=== PATIENT | female | born 1950 | race Caucasian/White ===

== ENCOUNTER 2018-08-31 00:05 | Outpatient (CLI) | payer MEDICARE, OTHER, SELFPAY ==
--- NOTE | 2018-08-31 07:42 | DI.MAMMO_ITS ---
SYMPTOM/DIAGNOSIS: SCREENING, [facility], Z00.00 MAMMOGRAM: 08/31/18 Mammograms were interpreted according to the usual protocol including computer analysis with CAD system, tomosynthesis and C view imaging. The breasts are of moderate density with fairly symmetrical distribution of fibroglandular tissue. No dominant mass is identified in either breast apart from a previously described left breast upper outer quadrant nodule which is markedly decreased in size in comparison with examination of Jul 2017. No clumped microcalcification is identified in either breast. CONCLUSION: No specific evidence of malignancy at this time. Routine screening examinations are suggested at yearly intervals in this age group according to the ACS/ACR guidelines. Category 1, breast category B. SA ASSESSMENT OF FINDINGS: Negative. Category 1. Patient will receive a letter notifying them of these results. BI-RADS category B. There are scattered areas of fibroglandular density.
== END 2018-08-31 00:25 ==
PROVIDERS: PCP Family Medicine; Visit Provider Family Medicine
DX: Z12.31 Encounter for screening mammogram for malignant neoplasm of breast (principal)
CPT/HCPCS: 77063; 77067

== ENCOUNTER → 2018-09-21 07:57 | Outpatient (BNVA) | payer MEDICARE, OTHER, SELFPAY | PROVIDERS: PCP Family Medicine; Referring Provider Family Medicine; Visit Provider Student in an Organized Health Care Education/Training Program | DX: M17.12 Unilateral primary osteoarthritis, left knee (principal) | CPT/HCPCS: 99213 ==

== ENCOUNTER 2019-12-24 01:06 | Outpatient (CLI) | payer MEDICARE, SELFPAY ==
--- NOTE | 2019-12-24 13:15 | DI.MAMMO_ITS ---
EXAM: MAMMO SCREENING CLINICAL HISTORY: SCREENING,Z12.39,[facility],Z00.00 TECHNIQUE: Mammograms were interpreted according to the usual protocol including computer analysis w 60mo CAD system, tomosynthesis and C-view imaging. COMPARISON: 2012 through 2018 FINDINGS: The breasts are composed of heterogeneously dense fibroglandular densities, Breast Density category C . No suspicious masses or suspicious microcalcifications are seen. There is a stable area of nodularit y seen in the posterior right breast, found to represent a cyst on previous ultrasound. No skin thickening or abnormal axillary lymph nodes are seen. There has been no significant change from prior exams. IMPRESSION: BI-RADS Category 1: Negative mammogram. Yearly screening mammography is recommended. Breast density category C, heterogeneously dense tissue which decreases the sensitivity of the mammog pierre. The mammogram demonstrates the patient's breast tissue is dense. Dense breast tissue is very common a nd is not abnormal but dense breast tissue can make it harder to find cancer on a mammogram. Also, de nse breast tissue may increase breast cancer risk. This information about the result of the mammogram report was provided to the patient to raise their awareness. Use this report when you speak with the patient about their risks for breast cancer, which includes their family history. At that time, you may recommend additional screening tests (Ultrasound or MRI) as they might be useful based on their r isk. A negative radiographic report should not delay biopsy if a dominant or clinically suspicious mass is present. Up to ten percent of cancers are not identified on mammography. A negative report may reinforce clinical impression. Adenosis and dense breasts may obscure an underlying neoplasm. False positive reports average 6 to 10%.
== END 2019-12-24 01:26 ==
PROVIDERS: PCP Family Medicine; Visit Provider Family Medicine
DX: Z12.31 Encounter for screening mammogram for malignant neoplasm of breast (principal); N60.01 Solitary cyst of right breast
CPT/HCPCS: 77063; 77067

== ENCOUNTER 2020-03-18 13:08 | Outpatient (REF) | payer MEDICARE, OTHER, SELFPAY | END 2020-03-18 13:28 | LOC: NCHCN 13:08 | PROVIDERS: PCP Family Medicine; Visit Provider Nurse Practitioner Family | DX: N39.0 Urinary tract infection, site not specified (principal) | CPT/HCPCS: 87077; 87086; 87186 ==

== ENCOUNTER 2020-09-12 16:59 | Outpatient (REF) | payer MEDICARE, OTHER, SELFPAY ==
[2020-09-12 16:05] LABS: Bilirubin Negative (Negative); Blood Large (Negative); Clarity Cloudy (Clear); Glucose Negative (Negative); Ketones Negative (Negative); Leukocyte Esterase Moderate (Negative); Nitrite Negative (Negative); Urobilinogen 0.2 EU/dL (Up TO 0.2)
[2020-09-12 16:17] LABS: C & S Indicated? Yes; RBC >50 HPF (0-2); WBC >50 HPF (0-5)
== END 2020-09-12 17:00 | disposition home or self-care (01) ==
LOC: NCHCN 16:59
PROVIDERS: PCP Family Medicine; Visit Provider Family Medicine
DX: N39.0 Urinary tract infection, site not specified (principal)
CPT/HCPCS: 87077; 81003; 81015; 87086; 87186

== ENCOUNTER 2020-11-28 15:07 | Outpatient (REF) | payer MEDICARE, OTHER, SELFPAY | END 2020-11-28 15:08 | disposition home or self-care (01) | LOC: LBN 15:07 | PROVIDERS: PCP Family Medicine; Visit Provider Nurse Practitioner Family | DX: N39.0 Urinary tract infection, site not specified (principal) | CPT/HCPCS: 87086 ==

== ENCOUNTER 2021-01-25 10:17 | Outpatient (CLI) | payer MEDICARE, OTHER, SELFPAY ==
--- NOTE | 2021-01-25 09:15 | DI.RAD_ITS ---
Exam(s) XR KNEE LT 3V AP,LAT,VERENICE EXAM: XR KNEE LT 3V AP,LAT,VERENICE CLINICAL HISTORY: L knee pain. TECHNIQUE: 2D digital imaging was performed. COMPARISON: No exams were available for comparison FINDINGS: There is no evidence fracture nor obvious knee joint effusion. Main finding is advanced [id number] degenerative change in medial compartment also significant degenerative changes the patellofemoral c ompartment. Milder degenerative changes in the lateral compartment. Mild Verus deformity. IMPRESSION: Osteoarthritic degenerative changes. DATA REPOSITORY: RADIATION DOSE DELIVERED:
== END 2021-01-25 10:18 | disposition home or self-care (01) ==
LOC: DIORS 10:18
PROVIDERS: PCP Family Medicine; Referring Provider Family Medicine; Visit Provider Student in an Organized Health Care Education/Training Program
DX: M17.12 Unilateral primary osteoarthritis, left knee (principal); M25.562 Pain in left knee
CPT/HCPCS: 20610; 73562; J1040

== ENCOUNTER 2021-04-20 12:16 | Outpatient (REF) | payer MEDICARE, OTHER, SELFPAY ==
[2021-04-20 19:53] LABS: HCT 44.9 % (36.0-46.0); HGB 14.9 g/dL (11.2-15.7); MCH 31.5 pg (27.0-33.0); MCHC 33.2 % (32.0-36.0); MCV 94.9 fL (80-95); MPV 10.6 fL (8.0-11.0); Platelet Count 234 10^3/uL (130-400); RBC 4.73 10^6/uL (3.93-5.22); RDW-SD 45.6 fL; WBC 5.04 10^3/uL (4.4-10.8)
[2021-04-20 20:47] LABS: Vitamin D 25 Total 28.3 ng/mL (30-100)
[2021-04-20 20:50] LABS: ALT 31 U/L (14-59); AST 15 U/L (15-37); Albumin 4.3 g/dL (3.4-5.0); Alkaline Phosphatase 62 U/L (46-116); Anion Gap 9.1 mmol/L (3-11); BUN 13 mg/dL (7-18); Bilirubin, Total 0.6 mg/dL (0.2-1.0); CO2 28.9 mmol/L (21.0-32.0); CREATININE 0.9 mg/dL (0.55-1.02); Calculated LDL 136 mg/dL (<100); Chloride 106 mmol/L (98-107); Cholesterol 234 mg/dL (<200); Glucose 110 mg/dL (74-106); HDL Cholesterol 77 mg/dL (40-60); Potassium 4.3 mmol/L (3.5-5.1); Sodium 144 mmol/L (136-145); TSH (W/Ref FT4) 1.93 uIU/mL (0.36-3.74); Total Protein 7.1 g/dL (6.4-8.2); Triglyceride 109 mg/dL (<150); Vitamin B12 450 pg/mL (193-986)
== END 2021-04-20 12:17 | disposition home or self-care (01) ==
LOC: NCHCN 12:16
PROVIDERS: PCP Family Medicine; Referring Provider Family Medicine; Visit Provider Family Medicine
DX: C54.1 Malignant neoplasm of endometrium (principal); Z00.00 Encounter for general adult medical examination without abnormal findings
CPT/HCPCS: 80053; 80061; 82306; 85027; 82607; 84443

== ENCOUNTER → 2021-05-17 10:53 | Outpatient (BNVA) | payer MEDICARE, OTHER, SELFPAY | PROVIDERS: PCP Family Medicine; Referring Provider Family Medicine; Visit Provider Student in an Organized Health Care Education/Training Program | DX: M17.12 Unilateral primary osteoarthritis, left knee (principal); Z98.890 Other specified postprocedural states | CPT/HCPCS: 99213 ==

== ENCOUNTER 2021-07-02 00:14 | Outpatient (CLI) | payer MEDICARE, OTHER, SELFPAY ==
--- OUTSIDE RECORDS SUMMARY | 2021-07-02 00:16 | XMS_ITS ---
:1950 External Reference #:[id number] Author Care Team Providers Name Role Phone [facility] Primary Care Provider Unavailable Allergies None recorded. Medications Name Status Start Date Stop Date ? ? amoxicillin 250 mg capsule Active ? Not a vailable amoxicillin 875 mg-potassium clavulanate Active ? Not available 125 mg tablet celecoxib 200 mg capsule Active ? Not senait ilable Curcumin Active ? Not available esomeprazole magnesium 40 mg Active ? Not available capsule,delayed release Estrace 0.01% (0.1 mg/gram) vaginal cream Active ? Not available Fish Oil Active ? Not available fluconazole 150 mg tablet Active ? Not av ailable fluticasone propionate 50 mcg/actuation Active ? Not available nasal spray,suspension milk thistle Active ? Not available omeprazole 40 mg capsule,delayed release Active ? Not available sulfamethoxazole 800 mg-trimethoprim 160 Active ? Not available mg tablet Ventolin HFA 90 mcg/actuation aerosol Active ? Not available inhaler Vitamin D3 Active ? Not available vitamin E Active ? Not available Problems Name Status Onset Date Source ? Multiple Joint Pain Active 04/03/2019 ? Dietary Management Surveillance Active 04/03/2019 ? Cystocele and Rectocele Co-occurrent with Active 2018 ? Incomplete Uterovaginal Prolapse Hiatal Hernia Active 10/23/2019 ? Procedures Date Name Performed by ? 12/29/2014 Hysterectomy Information not avai lable 12/29/2014 Total Hysterectomy Information not avai lable 11/28/2014 Colonoscopy Information not avai lable 12/29/1978 Tubal Ligation Information not avai lable 10/05/2016 US, Abdomen Xray [facility] [address] [place], [place] [address] (Work Place) 06/04/2019 US, Duplex, Abdomen, Complete [facility] [address] (Work Place) 06/06/2019 CT, Abdomen + Pelvis, W/wo Contrast Xray [facility] [address] [place], [place] [address] (Work Place) Results Lab Results Date Name Specimen Result Interpretation Description Value Range Status Address ? 12/29/2016 HbA1C wholeblood ? Hgb a1C 5.7 % 4.0-5.7 [facility] (Hemoglobin % Diagn ostics: a1C), Blood [address] [place], [place] 12/29/2016 CBC W/ Auto wholeblood ? White Blood 5.3 4.0-1 1.0 [facility] Diff Cell Count 10^3/u 10^3/uL Diagn ostics: L [address] [place], [place] ? ? wholeblood ? Red Blood 4.53 4.00-5.4 [facility] Cell Count 10^6/u 0 Diagno stics: L 10^6/uL [address] [place], [place] ? ? wholeblood ? Hemoglobin 14.3 12.5-16. [facility] g/dL 0 g/dL Diagnostic s: [address] [place], [place] ? ? wholeblood ? Hematocrit 41.8 % 37.0-47. [facility] 0 % Diagnostic s: [address] [place], [place] ? ? wholeblood ? Mean Cell 92 fL 78-100 [facility] Volume fL Diagnostic s: [address] [place], [place] ? ? wholeblood ? Mean Cell 31.5 25.0-35. [facility] Hemoglobin pg 0 pg Diagno stics: [address] [place], [place] ? ? wholeblood ? Mean Cell 34.2 30.0-37. [facility] Hemoglobin g/dL 0 g/dL Diagno stics: Concentratio [address] [place], [place] ? ? wholeblood ? Red Cell 13.5 % 11.5-14. [facility] Distribution 5 % Diag nostics: Width [address] [place], [place] ? ? wholeblood ? Platelet 213 150-450 [facility] Count 10^3/u 10^3/uL Diagnosti cs: L [address] [place], [place] ? ? wholeblood ? Mean 8.9 fL 6.8-10.4 [facility] Platelet fL Diagnost ics: Volume [address] [place], [place] ? ? wholeblood ? Neutrophil 56.6 % 40.0-70. [facility] Percent 0 % Diagnosti cs: [address] [place], [place] ? ? wholeblood ? Absolute 3.0 1.5-6.6 [facility] Neutrophil 10^3/u 10^3/uL Diagn ostics: L [address] [place], [place] ? ? wholeblood ? Lymphocyte 31.6 % 18.0-48. [facility] Percent 0 % Diagnosti cs: [address] [place], [place] ? ? wholeblood ? Absolute 1.7 0.8-4.8 [facility] Lymphocyte 10^3/u 10^3/uL Diagn ostics: L [address] [place], [place] ? ? wholeblood ? Monocyte 8.3 % 2.0-11.0 [facility] Percent % Diagnosti cs: [address] [place], [place] ? ? wholeblood ? Absolute 0.40 0.00-0.9 [facility] Monocyte 10^3/u 0 Diagnost ics: L 10^3/uL [address] [place], [place] ? ? wholeblood ? Eosinophil 2.4 % 0.0-5.0 [facility] Percent % Diagnosti cs: [address] [place], [place] ? ? wholeblood ? Absolute 0.1 0.0-0.5 [facility] Eosinophil 10^3/u 10^3/uL Diagn ostics: L [address] [place], [place] ? ? wholeblood ? Basophil 1.1 % 0.0-2.0 [facility] Percent % Diagnosti cs: [address] [place], [place] ? ? wholeblood ? Basophil 0.10 0.00-0.3 [facility] Absolute 10^3/u 0 Diagnost ics: L 10^3/uL [address] [place], [place] 12/29/2016 Calcium, Serum High Calcium 1.32 1.11-1.3 [facility] Ionized, Ionized pH mmol/L 0 mmol/L D iagnostics: Blood 7.[address] [place], [place] ? ? Serum High Calcium, 1.35 1.11-1.3 [facility] Ionized mmol/L 0 mmol/L Diagnos tics: Serum [address] [place], [place] 12/29/2016 CMP, Serum serum High Glucose 111 <100 [facility] or Plasma mg/dL mg/dL Diagnos tics: [address] [place], [place] ? ? serum ? Bun 14 7-25 [facility] mg/dL mg/dL Diagnostic s: [address] [place], [place] ? ? serum ? Creatinine 0.74 0.70-1.3 [facility] mg/dL 0 mg/dL Diagnosti cs: [address] [place], [place] ? ? serum ? BUN / 18.9 6.0-21.0 [facility] Creatinine ratio ratio Diagno stics: Ratio [address] [place], [place] ? ? serum ? eGFR 97 >60 [facility] mL/min mL/min/1 Diagnos tics: English /1.73m .73m2 [address] [place], [place] ? ? serum ? eGFR 83 >60 [facility] Non- mL/min mL/min/1 [facility]: English /1.73m .73m2 [address] [place], [place] ? ? serum ? Sodium 141 135-145 [facility] mmol/L mmol/L Diagnostic s: [address] [place], [place] ? ? serum ? Potassium 4.1 3.5-5.1 [facility] mmol/L mmol/L Diagnostic s: [address] [place], [place] ? ? serum High Chloride 108 98-107 [facility] mmol/L mmol/L Diagnostic s: [address] [place], [place] ? ? serum ? Co2 24 21-31 [facility] mmol/L mmol/L Diagnostic s: [address] [place], [place] ? ? serum ? Anion Gap 9 5-15 [facility] mEq/L mEq/L Diagnostic s: [address] [place], [place] ? ? serum ? Calcium 9.8 8.6-10.3 [facility] mg/dL mg/dL Diagnostic s: [address] [place], [place] ? ? serum Low Total 6.1 6.4-8.9 [facility] Protein g/dL g/dL Diagnosti cs: [address] [place], [place] ? ? serum ? Albumin 4.2 3.5-5.7 [facility] g/dL g/dL Diagnostic s: [address] [place], [place] ? ? serum ? Globulin 1.9 1.9-3.5 [facility] g/dL g/dL Diagnostic s: [address] [place], [place] ? ? serum High Albumin / 2.2 0.8-2.0 [facility] Globulin ratio ratio Diagnost ics: Ratio [address] [place], [place] ? ? serum ? Tbili 0.4 0.1-1.5 [facility] mg/dL mg/dL Diagnostic s: [address] [place], [place] ? ? serum ? Alk. 52 38-195 [facility] Phosphatase IU/L IU/L Diagn ostics: [address] [place], [place] ? ? serum Low Ast 11 13-39 [facility] IU/L IU/L Diagnostic s: [address] [place], [place] ? ? serum ? Alt 12 7-52 [facility] IU/L IU/L Diagnostic s: [address] [place], [place] 12/29/2016 Lipid Panel, serum ? Chol 186 <200 [facility] Serum mg/dL mg/dL Diagnostic s: [address] [place], [place] ? ? serum ? Trig 74 <149 [facility] mg/dL mg/dL Diagnostic s: [address] [place], [place] ? ? serum High Ldl 114.6 <99.0 [facility] mg/dL mg/dL Diagnostic s: [address] [place], [place] ? ? serum ? Hdl 66 >39 [facility] mg/dL mg/dL Diagnostic s: [address] [place], [place] ? ? serum ? LDL/HDL 1.7 ? [facility] ratio Diagnostic s: [address] [place], [place] ? ? serum ? Trig/hdl 1.1 <2.0 [facility] ratio ratio Diagnostic s: [address] [place], [place] ? ? serum ? Chol/hdl 2.8 ? [facility] ratio Diagnostic s: [address] [place], [facility] [place] ? ? serum ? Vldl 14.8 <30.0 [facility] mg/dL mg/dL Diagnostic s: [address] [place], [place] 12/29/2016 Vitamin D, serum ? Vitamin D 30.5 30.0-100 [facility] 25-Hydroxy, 25-Oh NG/mL .0 NG/mL [facility]: Total, Serum [address], [facility] 10/10/2016 Amylase, serum ? Amylase 52 29-103 [facility] Serum or IU/L IU/L Diagnost ics: Plasma [address] [place], [facility] 10/10/2016 CMP, Serum serum High Glucose 100 <100 [facility] or Plasma mg/dL mg/dL Diagnos tics: [address] [place], [facility] [place] ? ? serum ? Bun 13 7-25 [facility] mg/dL mg/dL Diagnostic s: [address] [place], [facility] [place] ? ? serum ? Creatinine 0.77 0.70-1.3 [facility] mg/dL 0 mg/dL Diagnosti cs: [address] [place], [facility] [place] ? ? serum ? BUN / 16.9 6.0-21.0 [facility] Creatinine ratio ratio Diagno stics: Ratio [address] [place], [facility] [place] ? ? serum ? eGFR 92 >60 [facility] mL/min mL/min/1 Diagnos tics: English /1.73m .73m2 [address] [place], [facility] [place] ? ? serum ? eGFR 80 >60 [facility] Non- mL/min mL/min/1 [facility]: English /1.73m .73m2 [address] [place], [facility] [place] ? ? serum ? Sodium 141 135-145 [facility] mmol/L mmol/L Diagnostic s: [address] [place], [place] ? ? serum ? Potassium 4.0 3.5-5.1 [facility] mmol/L mmol/L Diagnostic s: [address] [place], [place] ? ? serum ? Chloride 104 98-107 [facility] mmol/L mmol/L Diagnostic s: [address] [place], [place] ? ? serum ? Co2 26 21-31 [facility] mmol/L mmol/L Diagnostic s: [address] [place], [place] ? ? serum ? Anion Gap 11 5-15 [facility] mEq/L mEq/L Diagnostic s: [address] [place], [place] ? ? serum High Calcium 10.5 8.6-10.3 [facility] mg/dL mg/dL Diagnostic s: [address] [place], [place] ? ? serum ? Total 7.1 6.4-8.9 [facility] Protein g/dL g/dL Diagnosti cs: [address] [place], [place] ? ? serum ? Albumin 4.7 3.5-5.7 [facility] g/dL g/dL Diagnostic s: [address] [place], [place] ? ? serum ? Globulin 2.4 1.9-3.5 [facility] g/dL g/dL Diagnostic s: [address] [place], [place] ? ? serum ? Albumin / 2.0 0.8-2.0 [facility] Globulin ratio ratio Diagnost ics: Ratio [address] [place], [place] ? ? serum ? Tbili 0.7 0.1-1.5 [facility] mg/dL mg/dL Diagnostic s: [address] [place], [place] ? ? serum ? Alk. 60 38-195 [facility] Phosphatase IU/L IU/L Diagn ostics: [address] [place], [place] ? ? serum ? Ast 15 13-39 [facility] IU/L IU/L Diagnostic s: [address] [place], [place] ? ? serum ? Alt 15 7-52 [facility] IU/L IU/L Diagnostic s: [address] [place], [facility] 10/10/2016 Ferritin, serum ? Ferritin 120.6 13.0-150 [facility] Serum or NG/mL .0 NG/mL Diagno stics: Plasma [address] [place], [facility] 10/10/2016 Gamma-glutam serum ? Ggt 20 9-64 [facility] yl IU/L IU/L Diagnostic s: Transferase [address]Ggt), [address], [facility] 10/10/2016 Iron + Total serum ? Iron 54 50-212 [facility] Iron-binding ug/dL ug/dL Diag nostics: Capacity [address]TIBC[address] [place], [facility] el ? ? serum ? Transferrin 254.8 203.0-36 [facility] mg/dL 2.0 Diagnostic s: mg/dL [address] [place], [facility] ? ? serum ? Tibc 364.4 250.0-45 [facility] ug/dL 0.0 Diagnostic s: ug/dL [address] [place], [facility] ? ? serum ? Uibc 310.4 155.0-35 [facility] ug/dL 5.0 Diagnostic s: ug/dL [address] [place], [facility] ? ? serum ? %Saturation 14.8 % 14.0-50. [facility] 0 % Diagnostic s: [address] [place], [facility] 10/10/2016 Ldh, Serum serum ? Ldh 170 140-271 [facility] or Plasma IU/L IU/L Diagnos tics: [address] [place], [facility] 10/10/2016 Lipase, serum ? Lipase 27 11-82 [facility] Serum or IU/L IU/L Diagnost ics: Plasma [address] [place], [facility] 10/10/2016 Lipid Panel, serum High Chol 225 <200 [facility] Serum mg/dL mg/dL Diagnostic s: [address] [place], [facility] ? ? serum High Trig 158 <149 [facility] mg/dL mg/dL Diagnostic s: [address] [place], [facility] ? ? serum High Ldl 131.2 <99.0 [facility] mg/dL mg/dL Diagnostic s: [address], [facility] ? ? serum ? Hdl 72 >39 [facility] mg/dL mg/dL Diagnostic s: [address], [facility] ? ? serum ? LDL/HDL 1.8 ? [facility] ratio Diagnostic s: [address], [facility] ? ? serum High Trig/hdl 2.2 <2.0 [facility] ratio ratio Diagnostic s: [address], [facility] ? ? serum ? Chol/hdl 3.1 ? [facility] ratio Diagnostic s: [address], [facility] ? ? serum High Vldl 31.6 <30.0 [facility] mg/dL mg/dL Diagnostic s: [address], [facility] 10/10/2016 Vitamin D, serum Low Vitamin D 24.8 30.0-100 [facility] 25-Hydroxy, 25-Oh NG/mL .0 NG/mL [facility]: Total, Serum [address], [facility] 10/10/2016 TSH, Serum serum ? Tsh 1.54 0.40-4.5 [facility] or Plasma uIU/mL 0 uIU/mL Diagn ostics: [address], [facility] 10/10/2016 T4, Free, serum ? Free T4 1.15 0.93-1.7 [facility] Serum NG/dL 0 NG/dL Diagnosti cs: [address], [facility] 10/10/2016 T3, Free, serum ? Free T3 3.37 2.00-4.9 [facility] Serum or pg/mL 0 pg/mL Diagnos tics: Plasma [address], [facility] 10/10/2016 Lipoprotein Serum ? Lipoprotein <2 <=29 Fi [facility] (a), Serum (a) mg/dL mg/dL Diagno stics: [address] [place], [facility] 10/10/2016 Thyroid Serum ? Thyroid <0.3 0.0-9.0 [facility] Panel, Serum Peroxidase IU/mL IU/mL Diagnostics: (Tpo) [address] [place] , [place] ? ? Serum ? Thyroglobul <0.9 0.0-4.0 [facility] in Antibody IU/mL IU/mL Diagn ostics: [address] [place], [place] 10/10/2016 Folate, RBC Whole Blood ? Hematocrit 44.9 % ? [facility] (Client Diagnosti cs: Supplied) [address] [place], [place] ? ? Whole Blood ? Folate, RBC 928 >=366 [facility] NG/mL NG/mL Diagnostic s: [address] [place], [facility] 10/10/2016 Methylmalona Serum ? Mma 0.18 0.00-0.4 [facility] te, QN, Serum/plasma umol/L 0 umol/L D iagnostics: Serum or , Metabolic [address] [place] , [facility] 10/10/2016 CBC W/ Auto wholeblood ? White Blood 10.0 4.0-1 1.0 [facility] Diff Cell Count 10^3/u 10^3/uL Diagn ostics: L [address] [place], [facility] ? ? wholeblood ? Red Blood 4.95 4.00-5.4 [facility] Cell Count 10^6/u 0 Diagno stics: L 10^6/uL [address] [place], [facility] ? ? wholeblood ? Hemoglobin 14.8 12.5-16. [facility] g/dL 0 g/dL Diagnostic s: [address] [place], [facility] ? ? wholeblood ? Hematocrit 44.9 % 37.0-47. [facility] 0 % Diagnostic s: [address] [place], [facility] ? ? wholeblood ? Mean Cell 91 fL 78-100 [facility] Volume fL Diagnostic s: [address] [place], [facility] ? ? wholeblood ? Mean Cell 29.8 25.0-35. [facility] Hemoglobin pg 0 pg Diagno stics: [address] [place], [place] ? ? wholeblood ? Mean Cell 32.9 30.0-37. [facility] Hemoglobin g/dL 0 g/dL Diagno stics: Concentratio [address] [place], [place] ? ? wholeblood ? Red Cell 13.5 % 11.5-14. [facility] Distribution 5 % Diag nostics: Width [address] [place], [place] ? ? wholeblood ? Platelet 232 150-450 [facility] Count 10^3/u 10^3/uL Diagnosti cs: L [address] [place], [place] ? ? wholeblood ? Mean 8.8 fL 6.8-10.4 [facility] Platelet fL Diagnost ics: Volume [address] [place], [place] ? ? wholeblood High Neutrophil 72.5 % 40.0-70. [facility] Percent 0 % Diagnosti cs: [address] [place], [place] ? ? wholeblood High Absolute 7.3 1.5-6.6 [facility] Neutrophil 10^3/u 10^3/uL Diagn ostics: L [address] [place], [place] ? ? wholeblood ? Lymphocyte 20.6 % 18.0-48. [facility] Percent 0 % Diagnosti cs: [address] [place], [place] ? ? wholeblood ? Absolute 2.1 0.8-4.8 [facility] Lymphocyte 10^3/u 10^3/uL Diagn ostics: L [address] [place], [place] ? ? wholeblood ? Monocyte 5.4 % 2.0-11.0 [facility] Percent % Diagnosti cs: [address] [place], [place] ? ? wholeblood ? Absolute 0.50 0.00-0.9 [facility] Monocyte 10^3/u 0 Diagnost ics: L 10^3/uL [address] [place], [place] ? ? wholeblood ? Eosinophil 1.0 % 0.0-5.0 [facility] Percent % Diagnosti cs: [address] [place], [place] ? ? wholeblood ? Absolute 0.1 0.0-0.5 [facility] Eosinophil 10^3/u 10^3/uL Diagn ostics: L [address] [place], [facility] ? ? wholeblood ? Basophil 0.5 % 0.0-2.0 [facility] Percent % Diagnosti cs: [address] [place], [facility] ? ? wholeblood ? Basophil 0.00 0.00-0.3 [facility] Absolute 10^3/u 0 Diagnost ics: L 10^3/uL [address] [place], [facility] Past Encounters None recorded. Social History Tobacco Smoking Status Never Smoker Vaccine List None recorded. Plan of Care Reminders Provider Appointments None ? ? recorded. Lab None ? ? recorded. Referral None ? ? recorded. Procedures None ? ? recorded. Surgeries None ? ? recorded. Imaging None ? ? recorded. Vitals 05/07/2019 08:00AM ESTABLISHED PATIENT 44 Weight 167 lbs 04/02/2019 10:15AM ESTABLISHED PATIENT 44 Weight Blood Pressure 165 lbs 16 oz 148/80 mm[Hg] 02/20/2019 02:15PM ESTABLISHED PATIENT 44 Weight Blood Pressure 165 lbs 16 oz 144/74 mm[Hg] 04/25/2017 09:00AM ESTABLISHED PATIENT 29 Height Weight BMI Blood Pressure 5 ft 1 in 163 lbs 30.8 kg/m2 146/78 mm[Hg] 10/25/2016 02:30PM SICK VISIT Height 5 ft 1 in 10/10/2016 10:30AM SICK VISIT Height 5 ft 1 in 10/05/2016 08:00AM NEW PATIENT 59 Height Weight BMI Blood Pressure 5 ft 1 in 168 lbs 31.7 kg/m2 152/80 mm[Hg]
--- NOTE | 2021-07-02 08:30 | DI.MAMMO_ITS ---
Exam(s) MAMMO SCREENING EXAM: MAMMO SCREENING CLINICAL HISTORY: SCREENING MAMMO FOR BREAST CANCER Z12.31 TECHNIQUE: Bilateral full field digital CC and MLO mammographic images were obtained with 3D tomosyn thesis and utilizing computer aided detection (CAD). COMPARISON: Available for comparison. FINDINGS: Masses/Architectural Distortion: None seen. There is a stable nodule in the posterior superior right breast. Microcalcifications: No suspicious pleomorphic-type are seen. Skin Thickening/Nipple Retraction: None. IMPRESSION: 1. No significant interval change with no specific features of malignancy noted. 2. Unless there is more urgent need, screening mammography is recommended, as per [employer] guidelines. BI-RADS Category 1 - Negative Breast Density - Category C - Heterogeneously dense Breast density category C or D implies that the patient has dense breast tissue. Dense breast tissue is very common and is not abnormal but dense breast tissue can make it harder to find cancer on a ma mmogram. Also, dense breast tissue may increase their breast cancer risk. This information about the result of the mammogram report was provided to the patient to raise their awareness. Use this report when you speak with the patient about their risks for breast cancer, which includes their family hist ory. At that time, you may recommend for more screening tests (Ultrasound or MRI) as they might be us eful based on their risk. A negative radiographic report should not delay biopsy if a dominant or clinically suspicious mass is present. Up to ten percent of cancers are not identified on mammography. A negative report may reinforce clinical impression. Adenosis and dense breasts may obscure an underlying neoplasm. False positive reports average 6 to 10%. Patient will receive a letter notifying them of these results.
--- NOTE | 2021-07-02 09:00 | DI.DEXA_ITS ---
Exam(s) XR DEXA BONE DENSITY W/WO YOHAN EXAM: XR DEXA BONE DENSITY W/WO YOHAN CLINICAL HISTORY: POSTMENOPAUSAL Z78.0 TECHNIQUE: COMPARISON: Comparison examination is 12/04/2013. FINDINGS: Lateral Spine Image: Unremarkable. No compression deformities identified. Left hip: Total T-Score: -1.3. This compares to 0.0 on the prior examination. Total Z-Score: 0.3 T- and Z-scores: Findings consistent with osteopenia. Lumbar Spine: Total T-Score: -0.7. This compares to -0.1 on the prior examination. Total Z-Score: 1.6 T- and Z-scores: Within normal limits. IMPRESSION: 1. No evidence of osteoporosis. 2. Osteopenia in the left hip.
== END 2021-07-02 00:34 ==
PROVIDERS: PCP Family Medicine; Visit Provider Family Medicine
DX: Z12.31 Encounter for screening mammogram for malignant neoplasm of breast (principal); Z13.820 Encounter for screening for osteoporosis; Z78.0 Asymptomatic menopausal state; M85.88 Other specified disorders of bone density and structure, other site; R92.8 Other abnormal and inconclusive findings on diagnostic imaging of breast
CPT/HCPCS: 77063; 77067; 77080

== ENCOUNTER 2021-07-15 02:32 | Outpatient (CLI) | payer MEDICARE, OTHER, SELFPAY ==
[2021-07-15 13:52] LABS: HCT 43.2 % (36.0-46.0); HGB 13.8 g/dL (11.2-15.7); MCH 30.8 pg (27.0-33.0); MCHC 31.9 % (32.0-36.0); MCV 96.4 fL (80-95); Platelet Count 225 10^3/uL (130-400); RBC 4.48 10^6/uL (3.93-5.22); RDW 12.2 % (11.7-14.6); RDW-SD 43.7 fL; WBC 7.59 10^3/uL (4.4-10.8)
[2021-07-15 16:05] LABS: Anion Gap 9.1 mmol/L (3-11); BUN 17 mg/dL (7-18); CO2 27.9 mmol/L (21.0-32.0); CREATININE 0.9 mg/dL (0.55-1.02); Calcium 9.8 mg/dL (8.5-10.1); Chloride 105 mmol/L (98-107); Glucose 117 mg/dL (74-106); Potassium 3.8 mmol/L (3.5-5.1); Sodium 142 mmol/L (136-145)
== END 2021-07-15 02:33 | disposition home or self-care (01) ==
LOC: LBO 02:33
PROVIDERS: PCP Family Medicine; Visit Provider Student in an Organized Health Care Education/Training Program
DX: M17.12 Unilateral primary osteoarthritis, left knee (principal); Z01.818 Encounter for other preprocedural examination
CPT/HCPCS: 36415; 80048; 85027

== ENCOUNTER 2021-07-15 15:15 | Outpatient (CLI) | payer MEDICARE, OTHER, SELFPAY ==
--- NOTE | 2021-07-15 13:15 | DI.RAD_ITS ---
Exam(s) XR STANDING ALIGNMENT EXAM: XR STANDING ALIGNMENT CLINICAL HISTORY: PRE OP L TKA. TECHNIQUE: 2D digital imaging was performed. COMPARISON: CR LEFT KNEE 3 VIEW COMPLETE from 03/03/2017 CR LEFT KNEE 3 VIEW COMPLETE from 03/03/2017 FINDINGS: There is [id number] narrowing of the medial compartment of the left knee now evident. Lateral comp artment of the left knee exhibits normal height but marginal osteophytes. No significant narrowing t he medial compartment of the opposite-right nor of the lateral compartment. Both hips appear unremarkable. Ankles unremarkable. No osseous lesions. IMPRESSION: Advanced degenerative narrowing of medial compartment of the left knee. DATA REPOSITORY: RADIATION DOSE DELIVERED:
--- NOTE | 2021-07-15 13:15 | DI.RAD_ITS ---
Exam(s) XR KNEE LT 1V EXAM: XR KNEE LT 1V CLINICAL HISTORY: PRE OP L TKA. TECHNIQUE: 2D digital imaging was performed. COMPARISON: CR XR KNEE LT 3V AP,LAT,VERENICE from 01/25/2021 FINDINGS: Single lateral view compared to 01/25/2021 No evidence of fracture or joint effusion. Narrowing of the medial compartment on the lateral view i s again noted. Also narrowing of the patellofemoral compartment. Small calcification posteriorly on the lateral view is most probably the fabella and is unchanged. No osseous lesions. IMPRESSION: DATA REPOSITORY: RADIATION DOSE DELIVERED:
== END 2021-07-15 15:16 | disposition home or self-care (01) ==
LOC: DIORS 15:15
PROVIDERS: PCP Family Medicine; Referring Provider Family Medicine; Visit Provider Physician Assistant
DX: M17.12 Unilateral primary osteoarthritis, left knee (principal); Z01.818 Encounter for other preprocedural examination
CPT/HCPCS: 36415; 80048; 85027; 73560; 77073

== ENCOUNTER 2021-07-23 01:58 | Outpatient (CLI) | payer MEDICARE, OTHER, SELFPAY ==
[2021-07-23 10:39] LABS: Source Nasal/Nares
[2021-07-24 13:55] LABS: COVID-19 PCR Negative (Negative)
== END 2021-07-23 01:59 | disposition home or self-care (01) ==
LOC: LBO 01:59
PROVIDERS: PCP Family Medicine; Visit Provider Student in an Organized Health Care Education/Training Program
DX: Z20.822 Contact with and (suspected) exposure to COVID-19 (principal)
CPT/HCPCS: 87635

== ENCOUNTER 2021-07-26 05:58 | Day surgery (SDC) | payer MEDICARE, OTHER, SELFPAY ==
[2021-07-26] VITALS (11 sets, daily range): BP systolic 117–164; BP diastolic 40–126; PULSE 54–68; RESP 16–21; TEMP 36.2–36.7; O2SAT 94–100; BMI 30.6
--- NOTE | 2021-07-26 06:09 | W.ANESPRE ---
General Info Date of Service Date Performed: 07/26/21 Height: 5 ft 1 in Weight: 73.482 kg Body Mass Index (BMI): 30.6 Surgical Procedure: Operation Date: 07/26/21 07:55 Proposed Procedures Side Surgeon p Knee Total Arthroplasty Left Jere Zacarias MD Meds Allergies and Home Medications Allergies Allergy/AdvReac Type Severity Reaction Status Date / Time amoxicillin [From Augmentin] AdvReac Intermediate Verified 07/21/21 11:34 clavulanic acid AdvReac Intermediate Verified 07/21/21 11:34 [From Augmentin] Home Medication Medication Instructions Recorded celecoxib 200 mg capsule 200 mg PO DAILY #30 cap 01/25/21 cyclobenzaprine 5 mg tablet 5 mg PO QHS PRN #10 tab 05/17/21 atenolol 25 mg tablet 25 mg PO HS 07/15/21 omeprazole 40 mg PO DAILY 07/21/21 acetaminophen [Tylenol] 325 mg PO ONCE 07/26/21 naproxen-diphenhydramine [Aleve PM] 1 tab PO HS 07/26/21 Current Visit Medications: Current Medications Generic Name Dose Route Start Last Admin Trade Name Freq PRN Reason Stop Dose Admin Acetaminophen 1,000 mg 07/26/21 06:00 Acetaminophen 500 Mg Tab PO 07/26/21 16:00 PREOP DUSTY Celecoxib 400 mg 07/26/21 06:00 Celecoxib 200 Mg Cap PO 07/26/21 16:00 PREOP DUSTY Gabapentin 300 mg 07/26/21 06:00 Gabapentin 300 Mg Cap PO 07/26/21 16:00 PREOP DUSTY Tranexamic Acid 1,000 mg/ 60 mls @ 360 mls/hr 07/26/21 06:00 Sodium Chloride IVPB 07/26/21 16:00 PREOP DUSTY Tranexamic Acid 1,000 mg/ 60 mls @ 360 mls/hr 07/26/21 06:00 Sodium Chloride IVPB 07/26/21 16:00 DIRECTED DUSTY Ringer's Solution 1,000 mls @ 80 mls/hr 07/26/21 06:00 IV 08/21/21 23:59 INFUSION DUSTY Cefazolin Sodium/Dextrose 2 gm in 50 mls @ 100 mls/hr 07/26/21 06:00 Ancef Duplex IVPB 07/26/21 16:00 PREOP DUSTY IV Miscellaneous Supplies 1 each 07/26/21 06:00 Iv Access IV 08/21/21 23:59 DIRECTED DUSTY Sodium Chloride 0 ml 07/26/21 06:00 Normal Saline Flush 10 Ml Syr IV 08/21/21 23:59 PRN PRN Sodium Chloride 0 ml 07/26/21 06:00 Normal Saline 10 Ml Vial IJ 08/21/21 23:59 DIRECTED PRN Sterile Water 0 ml 07/26/21 06:00 Water,Injection,Sterile 10 Ml Vial IJ 08/21/21 23:59 DIRECTED PRN PFSH Active Problems Active Problems: Problem Status Onset Code Hypertension I10 MICHAEL (obstructive sleep apnea) G47.33 Adenocarcinoma of endometrium 01/29/14 C54.1 Endometrial hyperplasia, complex 01/07/14 N85.01 Post-menopausal bleeding 12/26/13 N95.0 Primary osteoarthritis of left knee 07/28/17 M17.12 Tendinitis involving left hip abductors 07/28/17 M76.892 Medical History Medical History (Updated 07/26/21 @ 06:25 by Angela Yusuf) History of obstructive sleep apnea pt. uses CPAP Hx of essential hypertension Hx of gastroesophageal reflux (GERD) Surgical History Surgical History (Updated 07/26/21 @ 06:23 by Angela Yusuf) Hx of colonoscopy Status post abdominal hysterectomy and salpingo-oophorectomy (~2014) For uterine cancer Status post carpal tunnel release of both wrists Tobacco Smoking/Tobacco Use Status: Never Alcohol Alcohol Intake: current Alcohol intake frequency: holidays/special occasions only Substance Use Substance use: Never Substance use type: does not use Vital Signs and Lab Results Vital Signs Most Recent Vital Signs in EMR: Temp Pulse Resp BP Pulse Ox 36.6 C 68 18 164/111 H 99 07/26/21 06:25 07/26/21 06:25 07/26/21 06:25 07/26/21 06:25 07/26/21 06:25 Lab Results Blood Type / Crossmatch: No Data to Display Complete Blood Count: White Blood Count 7.59 10^3/uL (4.4-10.8) 07/15/21 13:46 07/15/21 Red Blood Count 4.48 10^6/uL (3.93-5.22) 07/15/21 13:46 07/15/21 Hemoglobin 13.8 g/dL (11.2-15.7) 07/15/21 13:46 07/15/21 Hematocrit 43.2 % (36.0-46.0) 07/15/21 13:46 07/15/21 Platelet Count 225 10^3/uL (130-400) 07/15/21 13:46 07/15/21 Complete Metabolic Panel: Sodium Level 142 mmol/L (136-145) 07/15/21 13:46 07/15/21 Potassium Level 3.8 mmol/L (3.5-5.1) 07/15/21 13:46 07/15/21 Chloride Level 105 mmol/L (98-107) 07/15/21 13:46 07/15/21 Carbon Dioxide Level 27.9 mmol/L (21.0-32.0) 07/15/21 13:46 07/15/21 Blood Urea Nitrogen 17 mg/dL (7-18) 07/15/21 13:46 07/15/21 Creatinine 0.9 mg/dL (0.55-1.02) 07/15/21 13:46 07/15/21 Estimated GFR/1.73 m2 >= 60.00 (mL/min/1.73m2) 07/15/21 13:46 07/15/21 Calcium Level 9.8 mg/dL (8.5-10.1) 07/15/21 13:46 07/15/21 Glucose Level 117 mg/dL (74-106) H 07/15/21 13:46 07/15/21 Liver Function Panel: No Data to Display Coagulation Panel: No Data to Display Cardiac Panel: No Data to Display Arterial Blood Gas: No Data to Display Venous Blood Gas: No Data to Display Pancreas Panel: No Data to Display Thyroid Panel: No Data to Display Infectious Disease: Coronavirus (COVID-19)(PCR) Negative (Negative) 07/23/21 08:56 07/23/21 Coronavirus 2019 Source Nasal/Nares 07/23/21 08:56 07/23/21 Blood Cultures: No Data to Display Toxicology Panel: No Data to Display Anesthesia Assessment and Plan Anesthesia History Personal History: No History of Anesthesia Complications Family History: No Family History of Anesthesia Complications Exercise Tolerance Exercise Tolerance: Metabolic Equivalents>4 Cardiac & Pulmonary Exam Cardiac Exam: Normal S1/S2 Heart Sounds Pulmonary Exam: Clear Bilateral Breath Sounds Implantable Cardiac Device Does patient have a Pacemaker or an ICD?: No Airway Exam Known Difficult Airway: No Mallampati Class: 2 Mouth Opening: Narrow (< 3cm) Thyromental Distance: Less than 3 cm Neck Range of Motion: Full ROM Neck Circumference: Normal Teeth Condition: Normal Dentition ASA Classification ASA Score: ASA 2 Emergency Case?: No NPO Status NPO Status: NPO Clears >2 hours, Solids >8 hours Anesthesia Plan Resuscitation Status: Full Code Anesthesia Technique: Spinal Anesthesia Airway Planned: Natural Airway Pain Management: Surgeon and patient request nerve block Monitors Used: Standard Monitors Preoperative Comments:: 71 yo female for left TKA. Sig PMHx: MICHAEL, GERD (well controlled/omeprazole), HTN (atenolol), never smoker, occ EtOH Previous Anes: mac 3 grade 1, masked with OPA.
[2021-07-26] MEDS: Acetaminophen 500 MG TAB 1000 MG PO ×2 (06:33→13:55)
[2021-07-26] MEDS: Celecoxib 200 MG CAP 400 MG PO (06:33)
[2021-07-26] MEDS: Gabapentin 300 MG CAP PO (06:34)
[2021-07-26] MEDS: Lactated Ringers 1,000 ML 80 ML IV (06:55)
--- NOTE | 2021-07-26 07:22 | W.ANESNERVE ---
Nerve Block Single Injection Procedure Date and Time Date Performed: 07/26/21 Procedure Start: 07:18 Location Where Procedure Performed Procedure Location: Day Surgery Unit Reason Performed: Postoperative Analgesia Requesting Provider: Jere Zacarias Timeout Performed Timeout Performed: Yes Monitoring Used ECG, Blood Pressure, SpO2 and ETCO2 Sterility Sterility: Hand Hygiene, Surgical Cap, Surgical Mask, Sterile Gloves and Chlorhexidine Sedation Given During Procedure Sedation Given (Indicate Dose Given): No Sedation given Patient Mental Status Patient Mental Status: Awake Nerve Block 1st Nerve Block: Laterality: Left Block Type: Adductor Canal Needle / Catheter Used: 100mm SonoPlex II Local Anesthetic Bolus (Indicate Dose Given): Lidocaine used for local infiltration of skin, Injected in 3-5ml increments after negative blood aspiration and Bupivacaine 0.375% Dose:: 10 mL Additives (Indicate Dose Given): None Ultrasound: Sterile probe cover and gel used Ultrasound Image Saved?: Yes Nerve Stimulator: Not Used Paresthesia: None Procedure Tolerated: No Complications Procedure Outcome: Successful Performed By: Irineo Diaz
--- NOTE | 2021-07-26 07:30 | PDOC.DSDIS_ITS ---
Discharge Plan Disposition Patient Disposition: HOME Condition: Stable Discharge Details Reason For Visit: Left TKA Attending Provider: Jere Zacarias Primary Care Provider: Jenifer Graves V Home Meds and New Rx's Prescriptions: New celecoxib [Celebrex] 200 mg capsule 200 mg PO BID Qty: 60 RF: 0 aspirin 81 mg tablet,delayed release (DR/EC) 81 mg PO BID Qty: 60 RF: 0 gabapentin 300 mg capsule 300 mg PO QHS Qty: 14 RF: 0 acetaminophen 500 mg capsule 1,000 mg PO Q8H PRN PRNQty: 90 RF: 0 oxycodone 5 mg tablet 5 mg PO Q4H PRNQty: 18 RF: 0 Continued cyclobenzaprine 5 mg tablet 5 mg PO QHS PRN (Reason: muscle spasm) Qty: 10 RF: 0 atenolol 25 mg tablet 25 mg PO HS RF: 0 celecoxib 200 mg capsule 200 mg PO DAILY Qty: 30 RF: 2 omeprazole 40 mg capsule,delayed release(DR/EC) 40 mg PO DAILY RF: 0 Discontinued acetaminophen [Tylenol] 325 mg Capsule 325 mg PO ONCE RF: 0 Aleve PM 220-25 mg Tablet 1 tab PO HS RF: 0 Discharge Instructions Additional Instructions: Total Knee Discharge Instructions Activity: The most important activity is to walk. You should try to take short walks a few times a day. It is important that when resting you work on keeping the knee straight. Avoid putting a pillow behind the knee as this will encourage flexion. Work on range of motion exercises as provided by Physical Therapy. If you have the [employer] bike coming, this will be your primary tool for exercise after the knee replacement. You should use it and follow the directions for the knee. Utilize the other exercises sparingly based on your symptoms. - Start outpatient physical therapy within 2 weeks. - You should wear the MARYBETH hose on both legs for 2 weeks. You may remove these at night. You may also use any compression sock in place of the MARYBETH hose. - Utilize [employer] to review exercises, see videos on exercises and obtain basic information pertaining to your surgery and your recovery. Dressing: Remove the Troy wrap by 2 days after your surgery and put on the MARYBETH stocking given to you from the hospital. Keep the surgical dressing (underneath the TROY wrap) in place for at least one week. After the first week it may be removed and replaced with light gauze and tape or nothing. The wound and dressing may get wet after 3 days but avoid soaking the dressing or otherwise it will need to be changed. Many people prefer covering the dressing with cling wrap (saran wrap) to minimize it from getting soaked. If it gets wet, just pat dry. If it starts to peel off then it will need to be changed. Medications: - You should take Tylenol and anti-inflammatory Celebrex as your primary pain control medications. If the Celebrex is too expensive or not covered, please call the office for another alternative (Advil/Ibuprofen or Naproxen/Aleve) - You have been prescribed a stronger pain medication Oxycodone for breakthrough pain, take as needed as prescribed. - Continue with your daily omeprazole 40mg, to help reduce stomach acid and reflux. - You have been prescribed Gabapentin to take at night for restlessness and nerve pain. - You will be taking Aspirin 81mg twice a day for DVT prevention unless instructed otherwise. - If you have constipation you should take Colace or Miralax (both [id number]). It takes most people 3-4 days to have a bowel movement. Follow-up: 2 weeks If you have any acute concerns or questions, please do not hesitate to contact the office at [phone]. You may contact Dr. Zacarias with any questions after hours through the hospital at [phone] or on his cell phone at [phone]. Referrals: Jere Zacarias MD [ [facility] STAFF PHYSICIAN] - Equipment/Supplies: Walker Activity:: Activity as Tolerated Remove Dressings/Wound Care:: Do Not Remove Shower/Bathe:: 72 hours Diet:: As Tolerated Discharge Orders Discharge Orders: Discharge Order (Routine); Ordered 07/26/21 Ordered By: Jenifer Mueller DS: Diagnosis Discharge Diagnosis (1) Primary osteoarthritis of left knee: Status: Chronic
[2021-07-26] MEDS: ceFAZolin 2 GM/50 ML BAG IVPB (07:45)
[2021-07-26] MEDS: Bupivacaine 0.25% Pres-Free 30 ML VIAL (08:34)
[2021-07-26] MEDS: Ketorolac 30 MG/ML VIAL (08:34)
[2021-07-26] MEDS: Normal Saline 50 ML (08:34)
--- NOTE | 2021-07-26 11:35 | ROE_ITS ---
Date of service: 07/26/21 Time of Service: 09:04 Operative Note Operative Note DATE OF PROCEDURE: 07/26/21 PRE-OP DIAGNOSIS: Left Knee Osteoarthritis POST-OP DIAGNOSIS: same PROCEDURE: Left Total Knee Replacement SURGEON: Jere Zacarias PSYCHOLOGY CLINICIAN: Jenifer Mueller ANESTHESIA TYPE: Spinal Refer to Anesthesia Record ESTIMATED BLOOD LOSS: 150 PATHOLOGY: none sent TOURNIQUET TIME: 0 COMPLICATIONS: None Patient was transported to: PACU Patient's condition: stable Implants: 1. Depuy Attune Cementless Cruciate Retaining Femoral Component, Size 5 Narrow 2. Depuy Attune Cementless Rotating Platform Tibial Component, Size 4 3. Depuy Attune 5x8mm CR/RP Poly 4. Depuy Attune Patellar Component, Size 35 Indications: I have seen Brianne in clinic for symptoms of knee arthritis, confirmed with radiographic findings. She has exhausted nonoperative methods and was having significant limitations in daily function and desired better function and less pain. I discussed the technical details of a knee replacement. I explained the risks of the procedure to include, but not limited to, bleeding, infection, pain, stiffness, fracture, damage to nerves and vessels, damage to muscles and tendons, loosening, need for repeat procedure, blood clot and cardiopulmonary demise. Despite these risks, Alejandra elected to proceed. Findings: There was significant signs of arthritis throughout the knee. Procedure Description: Alejandra was greeted in the preoperative holding area where the correct side was identified and marked. The consent was reviewed with the patient and signed. The history and physical was updated. All questions were answered. Preoperative medications were administered: Acetaminophen 1000mg, Celebrex 400mg, and Gabapentin 300mg. An adductor canal block was then administered by the anesthesia team in the PACU. She was taken back to the operating room. A spinal anesthestic was then administered. The patient was placed into the supine position on the operating room table. A nonsterile tourniquet was placed high onto the leg but only used for cementing. Posts were placed for positioning during the procedure. All bony prominences were well padded. Prophylactic antibiotics in the form of Cefazolin were administered. 1g of Tranxemic Acid was given intravenously within 30 minutes of incision. The left leg was then prepped with Chloraprep and draped in a standard fashion with impervious stockinette. A second prep with Chloraprep was performed prior to application of Iodine impregnated skin protection. A timeout to confirm correct identity, side and site, procedure, allergies, anesthesia, and medical concerns was performed. With the knee in some flexion, a midline incision was made overlying the knee. Full thickness skin flaps were raised once the extensor mechanism was encountered. These were raised medially and laterally. Any bleeding was controlled with electrocautery. Once the extensor mechanism was fully exposed, a medial parapatellar arthrotomy was performed in a flexed position. All bleeding from the arthrotomy and the geniculate arteries was coagulated. A medial subperiosteal peel was performed with electrocautery to the midcoronal plane. The fat pad was removed while keeping the patellar tendon protected. The anterior distal femur synovium was removed for later visualization. The ACL and PCL were resected and the anterior horn of the lateral meniscus was transected. The knee was then flexed with the patella everted. Large osteophytes from the tibia were removed. Large osteo phytes from the femur were removed. Using a step drill, and based on preoperative templating, the femoral canal was entered. This was done with a step drill without any difficulty. The intramedullary distal femoral cut guide was inserted, set to a 6 degree valgus cut and 9mm cut thickness. The distal femoral cut guide was then held in position and pinned. With the soft tissues protected, the distal cut was performed. This was passed over a few times to ensure a planar cut. I then turned attention to the tibia. The extramedullary guide was placed onto the leg. The distal aspect was slid medial to adjust for position of center of ankle and stay in line with shaft of the tibia. Approximately 3-5 degrees of posterior slope was kept in the proximal cutting guide. The center of the guide was aligned with the PCL. The stylus was used to assess cut thickness. The medial side, most involved side, was set for a 5mm cut, corresponding to 8mm laterally. This was then held in position and pinned into place with 2 additional pins and a cross pin for stability. The medial and lateral collateral ligaments were protected and the cut was performed. With this completed, it was assessed and noted to be of appropriate dimensions. The guide was removed. A spacer block was inserted and the knee was brought into extension. The 7mm spacer block provided full extension, without hyperextension and with stability of both the medial and lateral collateral ligaments was assessed. The pins from the femur and the tibia were then removed. The distal femur was then sized. The anterior stylus was placed onto the lateral ridge of the anterior femur. This indicated a size 5 narrow femur. The external rotation of the guide was adjusted to 3 degrees to match the epicondylar axis, perpendicular to Shelton?s line. The 4-in-1 cutting guide was the placed. The posterior medial femur cut was evaluated and appeared of good thickness. The spacer block was inserted underneath the cutting guide and stability was confirmed in 90 degrees of flexion. An pb wing was used to confirm appropriate position of the anterior cut to avoid notching. This cutting guide was ensured to be flush on the cut surface and then pinned into place with headed pins. While protecting the soft tissues, quad tendon, and collateral ligaments, the anterior and posterior cuts were performed with a saw. The central two pins were removed and the posterior and anterior chamfers were cut next. The notch-cutting guide was placed. This was pinned to lateralize the femoral component as much as possible while keeping it flush on the cut surface. This was then pinned into position. A reciprocating saw was used to make the notch cut. A rasp smoothed the cut surfaces. The medial and lateral menisci were removed. A trial femoral component was then inserted, impacted down to the cut surfaces, and the lug holes were drilled. A provisional trial tibial component was placed and the knee was brought through range of motion. The polyethylene was trialed until there was good flexion and extension with excellent stability to the medial and lateral collaterals. The patella was tracking without thumbs. A size 8mm polyethylene component provided the best range of motion and stability with less than 2mm gapping with medial and lateral stress and full extension without significant hyperextension. The tibial cut surface was fully exposed. The tibia was then sized as a 4. The tibia had been previously marked during trialing to correspond to the center of the tibial component to help with rotation. The trial was aligned to this liam, approximately rotated to the medial 1/3rd of the tibial tubercle. The trial was pinned into place. The tibia was prepared with a reamer and a keel punch and lug holes. The knee was then brought into extension and the patella was measured as 21mm. Using the patellar clamp and cut guide, this was resected to a flat surface with at least 13mm of thickness remaining. The size 35 patella fit the best. This was oriented and then clamped into position. The lugs were drilled. The trial components were removed. The final components were opened on the back table. The periosteal and capsular tissues, especially posteriorly, around the knee were then systematically injected with a periarticular cocktail consisting of 50cc 0.25% Marcaine, 30mg Ketorolac, 20cc of Exparal and 50cc of injectable saline. The knee was thoroughly irrigated with a pulse lavage and dried. Irrisept was also used to irrigate the tissues. On the back table, with the implants opened, the cement was mixed. One batch of high viscosity cement was prepared with vacuum assistance. After the cement was ready a small amount was placed on the cut surface of the patella and the patellar button was clamped into position and held. While the cement was hardening, the cementless knee components were placed. Starting with the tibial component, the tibia was subluxed anteriorly and the lug holes of the component were lined up. The tibia was then impacted with an impactor and mallet until the tibial component was in contact with the tibia. The final polyethylene component was inserted. Then, the femoral component was inserted. The lug holes were aligned and the component was impacted into position. The knee was irrigated with Irrisept chlorhexadine solution. This was allowed to sit in the knee for 3 minutes. After the cement had finally cured, approximately 15min, the clamp was removed from the patella and the knee was taken through range of motion. The patella was tracking with a no-thumbs technique. The capsule was then reapproximated with a No. 1 Vicryl at multiple locations. The capsule was finally closed with a No. 2 Stratafix, barbed suture. The second dosing of 1g TXA was started. Deep tissues were then reapproximated with 0 Vicryl and 2-0 Vicryl. The skin was closed with a running 3-0 Monocryl in a subcuticular fashion. This was reinforced with skin glue. A Mepilex silver dressing was applied along with a [id number] BETTY wrap. A CryoCuff was applied. Alejandra was transferred to the hospital bed without difficulty an suffering no apparent complication. Alejandra has a good prognosis. Physical therapy will start today and without restrictions, weight-bearing as tolerated. Aspirin 81mg BID will be used for DVT prophylaxis.
--- NOTE | 2021-07-26 11:51 | W.ANESPOSTOP ---
Postoperative Evaluation Date, Time and Location Date Performed: 07/26/21 Time Performed: 11:51 Patient Location: Day Surgery Unit Vital Signs Most Recent Imported Vital Signs: Most Recent Vital Signs Temp Pulse Resp BP Pulse Ox 36.2 C L 54 L 18 140/76 96 07/26/21 11:00 07/26/21 11:00 07/26/21 11:00 07/26/21 11:00 07/26/21 11:00 Pain Score Most Recent Pain Score: Most Recent Pain Score Pain Level 0 07/26/21 11:00 Assessment Mental Status: Awake (Alert & Oriented to Patient Baseline) Airway and Respiratory Function: Patent airway with normal (patient baseline) respiratory exam Cardiovascular Function: Hemodynamically Stable Hydration Status: Adequately Hydrated Nausea & Vomiting: No Nausea or Vomiting Pain: Pt. Denies Any Pain Peripheral Nerve Block: Regional nerve block not resolved at time of post operative discharge
--- NOTE | 2021-07-26 12:35 | IN_ITS ---
Date of service: 07/26/21 Time of Service: 12:35 PT Notes Visit Reasons: Left TKA Physical Therapy Day Surgery Initial Evaluation Date: 07/26/2021 Referring Doctor: ОЛЬГА Ferrell PT Orders: PT CONSULT: Status post Ortho surgery Precautions: WBAT on left LE with AD. Patient Profile/Admitting Diagnosis: Brianne is a 71-year-old female with primary unilateral osteoarthritis of the left knee status post total knee arthroplasty day 0. PMHX: Surgical History (Updated 07/15/21 @ 14:06 by Danielle Michael) Status post abdominal hysterectomy and salpingo-oophorectomy (~2014) For uterine cancer Status post carpal tunnel release of both wrists Social History/Home Situation: Lives with in a private home with 2 steps to enter. 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 She also takes other patients in the community. Daughter Bhumika is a nurse in the OR. Independent with all aspects of ADLs prior to surgery. Equipment Owned/DME: [employer] Subjective: Anxious about L hip pain increasing with weight bearing. Nurse and orthopedic surgeon aware. Objective: General Observation: Supine in bed. BETTY wraps to left LE. Cryocuff to left knee. TEDs to right leg. Mental Status: Alert and oriented x 4 Pain: 2-3/10 in L knee, 3-4/10 in L hip ROM: Right Lower Extremity: Hip flexion WFL. Hip abduction WFL. Knee flexion WFL. Ankle dorsiflexion WFL. Ankle plantarflexion WFL. Left Lower Extremity: Hip flexion WFL. Hip abduction WFL. Knee flexion about 5 degrees to 100 degrees. Knee extension -5 degrees. Ankle dorsiflexion WFL. Ankle plantarflexion WFL. Strength: Right Lower Extremity: Hip flexors 5/5. Hip abductors 5/5. Knee flexors 5/5. Knee extensors 5/5. Ankle dorsiflexors 5/5. Ankle plantarflexors 5/5. Left Lower Extremity:Hip flexors 5/5. Hip abductors 5/5. Knee flexors 5/5. Knee extensors 3-/5. Knee extension 3 -/5. Ankle dorsiflexors 5/5. Ankle plantarflexors 5/5. Sensation: Intact as to pain and light pressure in B LE Bed Mobility/Transfers: Supine to sit standby assist Sit to stand contact-guard assist Stand to sit contact-guard assist Bed to chair contact-guard assist Gait: Instructed patient with level surface ambulation 500 feet using currently with step to gait pattern require contact-guard assist and minimal verbal cueing for safety. Did report mild lightheadedness intially. Anxious about the L hip bothering her more than the L knee. Pain level in the knee 2-3/10, in the hip 3-4/10. Nurse Mary aware. Balance: Static Sitting: Normal Dynamic Sitting: None Static Standing: Fair Dynamic Standing: Fair Special Tests: Mobility Limitations Standardized Measure [facility] AM-PAC 6 clicks Basic Mobility Inpatient Short Form: Raw Score: 20 CMS Score: 36% deficit Informed Consent/Education: Patient instructed in purpose of PT consult. Education and training on initial set of exercises that can be done at home have been completed with patient. Assessment: Brianne demonstrates the need for FWW for all mobility ADL performance to reduce fall risk and maximize independence at home. Reports of the L hip bothering her more than the L knee during ambulation. Will have very good support from family at home. Patient presents with clinical signs and symptoms consistent with current/admitting diagnoses that have resulted to mobility limitations, gait instability, generalized weakness, and impairment of motor control as demonstrated by the following impairment level findings: 1. Decreased strength to left knee major muscle groups 2. Impaired standing balance 3. Limitation of joint range of motion in left knee Impairments are contributing to the following functional limitations: 1. Inability to safely ambulate without assistive device 2. Increase completion time for mobility ADL performance 3. Increased fall risk Patient is assessed as a 46096 moderate complexity based on the following: History: 71-year-old female with impairment level findings, functional limitations, and past medical history as indicated above Examination: Demonstrable impairment in strength, balance, and mobility level with underlying impairments and functional limitations as documented above Presentation: Evolving Decision Makin 7 moderate complexity Goals: N/A. PT evaluation and 1-2 treatment sessions only for functional mobility training using recommended AD and for HEP instruction. Plan of Care/Treatment Plan: N/A. PT evaluation and 1-2 treatment session only for functional mobility training using recommended AD and for HEP instruction. DISCHARGE RECOMMENDATIONS: Home with no services [] Home with services [specify] [X] Home with outpatient PT. Home when cleared by orthopedic surgeon. OP PT services to facilitate return to full ADL participation and vocational activities. [] SNF for continued rehabilitation [] [] [facility] [] [] SNF versus LTC based on ability to participate and progress [] TREATMENT CODE/TIME: 15935 x 20 minutes, 17417 x 19 minutes beginning at 12:35 PM. Thank you for the opportunity to participate in the care of this patient. Teresa Cabrera PT, DPT, CLT [facility] [place], [place]
== END 2021-07-26 14:15 | disposition home or self-care (01) ==
PROVIDERS: PCP Family Medicine; Visit Provider Student in an Organized Health Care Education/Training Program
PROC: (CPT 27447; principal; 2021-07-26 07:45)
DX: M17.12 Unilateral primary osteoarthritis, left knee (principal); G47.33 Obstructive sleep apnea (adult) (pediatric); I10 Essential (primary) hypertension
CPT/HCPCS: 27447; C1776; 76942; 97162; 97530; J0690; J1100; J1885; J2250; J2370; J2405

== ENCOUNTER 2021-08-10 10:25 | Outpatient (CLI) | payer MEDICARE, OTHER, SELFPAY ==
--- NOTE | 2021-08-10 10:00 | DI.RAD_ITS ---
Exam(s) XR KNEE LT 1V EXAM: XR KNEE LT 1V CLINICAL HISTORY: 1ST POST OP L TKA TECHNIQUE: COMPARISON: CR XR KNEE LT 1V from 07/15/2021 FINDINGS: Lateral view of the knee was obtained and shows total knee joint replacement in position. The compon ents appear well seated. No other bony abnormality seen. IMPRESSION: RADIATION DOSE DELIVERED: Total DLP
--- NOTE | 2021-08-10 10:00 | DI.RAD_ITS ---
Exam(s) XR STANDING ALIGNMENT EXAM: XR STANDING ALIGNMENT CLINICAL HISTORY: 1ST POST OP L TKA TECHNIQUE: COMPARISON: CR XR STANDING ALIGNMENT from 07/15/2021 FINDINGS: AP standing alignment views were obtained. There is a total knee joint replacement position on the l eft. There are moderate degenerative changes of the medial tibiofemoral joint on the right. Note is made of an apparent mild valgus talar tilt bilaterally, left greater than right. IMPRESSION: RADIATION DOSE DELIVERED: Total DLP
== END 2021-08-10 10:26 | disposition home or self-care (01) ==
LOC: DIORS 10:25
PROVIDERS: PCP Family Medicine; Referring Provider Family Medicine; Visit Provider Physician Assistant Surgical
DX: Z96.652 Presence of left artificial knee joint (principal); Z47.1 Aftercare following joint replacement surgery
CPT/HCPCS: 73560; 77073

== ENCOUNTER 2021-09-07 15:12 | Outpatient (REF) | payer MEDICARE, OTHER, SELFPAY ==
[2021-09-07 20:20] LABS: Bilirubin Negative (Negative); Blood Moderate (Negative); Clarity Turbid (Clear); Glucose Negative (Negative); Ketones Negative (Negative); Leukocyte Esterase Moderate (Negative); Nitrite Positive (Negative); Specific Gravity >= 1.030 (1.005-1.025); Urobilinogen 0.2 EU/dL (Up TO 0.2); pH 6.5 (5-8)
[2021-09-07 20:32] LABS: Bacteria Many HPF (Negative); C & S Indicated? Yes; WBC >50 HPF (0-5)
== END 2021-09-07 15:13 | disposition home or self-care (01) ==
LOC: LBN 15:12
PROVIDERS: PCP Family Medicine; Visit Provider Family Medicine
DX: R39.89 Other symptoms and signs involving the genitourinary system (principal); R82.998 Other abnormal findings in urine
CPT/HCPCS: 87077; 81003; 81015; 87086; 87186

== ENCOUNTER → 2021-09-09 11:29 | Outpatient (BNVA) | payer MEDICARE, OTHER, SELFPAY | PROVIDERS: PCP Family Medicine; Referring Provider Family Medicine; Visit Provider Student in an Organized Health Care Education/Training Program | DX: Z47.1 Aftercare following joint replacement surgery (principal); Z96.652 Presence of left artificial knee joint ==

== ENCOUNTER → 2021-10-01 09:29 | Outpatient (BNVA) | payer MEDICARE, OTHER, SELFPAY | PROVIDERS: PCP Family Medicine; Referring Provider Family Medicine; Visit Provider Student in an Organized Health Care Education/Training Program | DX: Z96.652 Presence of left artificial knee joint (principal) ==

== ENCOUNTER 2021-11-02 12:21 | Outpatient (REF) | payer MEDICARE, OTHER, SELFPAY | END 2021-11-02 12:22 | disposition home or self-care (01) | LOC: LBN 12:21 | PROVIDERS: PCP Family Medicine; Visit Provider Nurse Practitioner Family | DX: N39.0 Urinary tract infection, site not specified (principal) | CPT/HCPCS: 87086 ==

== ENCOUNTER 2021-11-10 11:04 | Outpatient (REF) | payer MEDICARE, OTHER, SELFPAY | END 2021-11-10 11:05 | disposition home or self-care (01) | LOC: NCHCN 11:04 | PROVIDERS: PCP Family Medicine; Visit Provider Physician Assistant Medical | DX: N39.0 Urinary tract infection, site not specified (principal) | CPT/HCPCS: 87086 ==

== ENCOUNTER 2021-11-12 11:01 | Outpatient (CLI) | payer MEDICARE, OTHER, SELFPAY ==
--- NOTE | 2021-11-12 10:45 | DI.RAD_ITS ---
Exam(s) XR KNEE RT 3V AP,LAT,VERENICE EXAM: XR KNEE RT 3V AP,LAT,VERENICE CLINICAL HISTORY: pain in knee. TECHNIQUE: 2D digital imaging was performed of the right knee. Four views obtained. AP, lateral and PA tunnel views were obtained. COMPARISON: CR XR STANDING ALIGNMENT from 07/15/2021 FINDINGS: BONES: No acute fracture is present. No bony destructive lesion is seen. JOINTS: The knee is normally aligned. No joint effusion is seen. There are degenerative changes in th e right knee. The findings are marked in the patellofemoral joint where there is loss of the joint s pace and subchondral sclerosis. Tricompartment periarticular spurring is noted. SOFT TISSUE: Normal. IMPRESSION: Osteoarthritis of the right knee. DATA REPOSITORY: RADIATION DOSE DELIVERED:
== END 2021-11-12 11:02 | disposition home or self-care (01) ==
LOC: DIORS 11:01
PROVIDERS: PCP Family Medicine; Referring Provider Family Medicine; Visit Provider Student in an Organized Health Care Education/Training Program
DX: M17.11 Unilateral primary osteoarthritis, right knee (principal)
CPT/HCPCS: 20610; 73562; J1040

== ENCOUNTER 2021-12-01 00:55 | Outpatient (CLI) | payer MEDICARE, OTHER, SELFPAY ==
--- NOTE | 2021-12-01 | DI.US_ITS ---
Exam(s) US RENAL EXAM: US RENAL CLINICAL HISTORY: RT FLANK PAIN, UTI,R10.9,N39.0. TECHNIQUE: Pleitez scale, color and spectral Doppler were used. COMPARISON: No exams were available for comparison FINDINGS: Renal size in cm: Right: 1.9 left: 10.1 Echogenicity: Normal Hydronephrosis: No Cyst or mass: No Nephrolithiasis: Question of small bilateral stones versus reflective artifacts. Homogeneous blood flow. Bladder:Normal , both ureteral jets visualized. Prevoid vol: 219 Postvoid vol:0 IMPRESSION: Question of small bilateral nonobstructing renal calculi versus reflective artifacts. No evidence of hydronephrosis. No gross evidence of pyelonephritis. DATA REPOSITORY:
== END 2021-12-01 01:15 ==
PROVIDERS: PCP Family Medicine; Visit Provider Family Medicine
DX: R10.31 Right lower quadrant pain (principal); N39.0 Urinary tract infection, site not specified
CPT/HCPCS: 76770

== ENCOUNTER → 2021-12-13 02:28 | Outpatient (CLI) | payer MEDICARE, OTHER, SELFPAY ==
--- NOTE | 2021-12-13 | DI.CT_ITS ---
Exam(s) CT ABDOMEN PELVIS WO EXAM: CT ABDOMEN PELVIS WO CLINICAL HISTORY: RT FLANK PAIN,R10.9,CALCIUM KIDNEY STONE,N20.0. TECHNIQUE: Imaging Protocol: Axial computed tomography images with coronal and sagittal reformatted images were created and reviewed. COMPARISON: CT CHEST FOR PE, ABD PELVIS W from 02/21/2014 US US RENAL from 12/01/2021 FINDINGS: ABDOMEN: Lung Bases: Normal where visualized. Small hiatal hernia. Liver: Normal density. No measurable mass. Unchanged calcification in the right lobe of the liver. Gallbladder and biliary tract: No biliary ductal dilatation. Pancreas: Normal density, no abnormal calcifications or inflammatory process. Spleen: Normal. Kidneys: Normal size, contour and axis.No radiodense stones or obstructive uropathy. No masses seen. There are calcifications seen in the retroperitoneum which likely are phleboliths. Adrenal glands: No mass is seen. Lymph nodes: Within normal limits. Abdominal Aorta: Abdominal portion non-dilated. Minimal atherosclerosis. PELVIS: Bladder:Symmetric distention, no gross wall thickening. Bowel: No obstruction or bowel wall thickening. Appendix is unremarkable. There is diverticulosis th roughout the colon, but no evidence of acute diverticulitis. Peritoneal cavity: No ascites, collection or mesenteric inflammatory response. No free air. Reproductive organs: Unremarkable as visualized. Bones: Age-related degenerative changes are present. Soft Tissues: Within normal limits. IMPRESSION: No evidence of nephrolithiasis or hydronephrosis. RADIATION DOSE DELIVERED: 801.5mGy.cm Total DLP DATA REPOSITORY: All CT scans at this facility are submitted to the National Radiology Data Registry (NRDR) Dose Index Registry (DIR) with the [employer] (A[employer]). RADIATION OPTIMIZATION: All CT scans at this facility use at least one of these dose optimization te chniques: automated exposure control; mA and/or kV adjustment per patient size (includes targeted exa ms where dose is matched to clinical indication); or iterative reconstruction.
== END ==
PROVIDERS: PCP Family Medicine; Visit Provider Family Medicine
DX: R10.31 Right lower quadrant pain (principal); N20.0 Calculus of kidney; K44.9 Diaphragmatic hernia without obstruction or gangrene; K76.89 Other specified diseases of liver; K57.30 Diverticulosis of large intestine without perforation or abscess without bleeding
CPT/HCPCS: 74176

== ENCOUNTER 2022-03-18 18:07 | Outpatient (REF) | payer MEDICARE, OTHER, SELFPAY ==
[2022-03-18 13:53] LABS: Bilirubin Negative (Negative); Blood Moderate (Negative); Clarity Cloudy (Clear); Glucose Negative (Negative); Ketones Negative (Negative); Leukocyte Esterase Moderate (Negative); Nitrite Negative (Negative); Specific Gravity >= 1.030 (1.005-1.025); Urobilinogen 0.2 EU/dL (Up TO 0.2)
[2022-03-18 14:10] LABS: Bacteria Few HPF (Negative); C & S Indicated? Yes; Casts 0-2 Hyaline LPF (Negative); Crystals Negative HPF (Negative); Epithelial Cells Few HPF (Negative); Mucus Negative (Negative); WBC >50 HPF (0-5)
== END 2022-03-18 18:08 | disposition home or self-care (01) ==
LOC: NCHCN 18:07
PROVIDERS: PCP Family Medicine; Visit Provider Nurse Practitioner Family
DX: N39.0 Urinary tract infection, site not specified (principal)
CPT/HCPCS: 87077; 81003; 81015; 87086; 87186

== ENCOUNTER 2022-03-23 15:15 | Outpatient (REF) | payer MEDICARE, OTHER, SELFPAY ==
[2022-03-23 13:35] LABS: Bilirubin Negative (Negative); Blood Negative (Negative); Clarity Clear (Clear); Glucose Negative (Negative); Ketones Negative (Negative); Leukocyte Esterase Negative (Negative); Nitrite Negative (Negative); Specific Gravity 1.025 (1.005-1.025); Urobilinogen 0.2 EU/dL (Up TO 0.2); pH 5.5 (5-8)
== END 2022-03-23 15:16 | disposition home or self-care (01) ==
LOC: LBN 15:15
PROVIDERS: PCP Family Medicine; Visit Provider Nurse Practitioner Family
DX: R39.9 Unspecified symptoms and signs involving the genitourinary system (principal)
CPT/HCPCS: 81003

== ENCOUNTER → 2022-03-24 13:51 | Outpatient (BNVA) | payer MEDICARE, OTHER, SELFPAY | PROVIDERS: PCP Family Medicine; Referring Provider Family Medicine; Visit Provider Physician Assistant | DX: Z01.818 Encounter for other preprocedural examination (principal); M17.11 Unilateral primary osteoarthritis, right knee ==

== ENCOUNTER 2022-04-01 01:39 | Outpatient (CLI) | payer MEDICARE, OTHER, SELFPAY ==
[2022-04-01 12:05] LABS: Source Nasal/Nares
[2022-04-01 16:54] LABS: COVID-19 PCR Negative (Negative)
== END 2022-04-01 01:40 | disposition home or self-care (01) ==
LOC: LBO 01:39
PROVIDERS: PCP Family Medicine; Visit Provider Student in an Organized Health Care Education/Training Program
DX: Z20.822 Contact with and (suspected) exposure to COVID-19 (principal)
CPT/HCPCS: 36415; 80048; 85027; 87635

== ENCOUNTER 2022-04-01 01:48 | Outpatient (CLI) | payer MEDICARE, OTHER, SELFPAY ==
[2022-04-01 09:55] LABS: HCT 41.5 % (36.0-46.0); HGB 13.9 g/dL (11.2-15.7); MCH 31.2 pg (27.0-33.0); MCHC 33.5 % (32.0-36.0); MCV 93 fL (80-95); MPV 9.9 fL (8.0-11.0); Platelet Count 216 10^3/uL (130-400); RBC 4.45 10^6/uL (3.93-5.22); RDW-SD 41.6 fL; WBC 5.88 10^3/uL (4.4-10.8)
[2022-04-01 10:40] LABS: Anion Gap 7.4 mmol/L (3-11); BUN 21 mg/dL (7-18); CO2 27.6 mmol/L (21.0-32.0); CREATININE 0.9 mg/dL (0.55-1.02); Calcium 9.2 mg/dL (8.5-10.1); Chloride 107 mmol/L (98-107); Estimated GFR 67.92 (mL/min/1.73m2); Glucose 119 mg/dL (74-106); Potassium 4.3 mmol/L (3.5-5.1); Sodium 142 mmol/L (136-145)
== END 2022-04-01 01:49 | disposition home or self-care (01) ==
LOC: LBO 01:48
PROVIDERS: PCP Family Medicine; Visit Provider Student in an Organized Health Care Education/Training Program
DX: M17.11 Unilateral primary osteoarthritis, right knee (principal); Z01.818 Encounter for other preprocedural examination
CPT/HCPCS: 36415; 80048; 85027

== ENCOUNTER 2022-04-05 07:51 | Day surgery (SDC) | payer MEDICARE, OTHER, SELFPAY ==
--- NOTE | 2022-04-04 18:17 | W.ANESPRE ---
General Info Date of Service Date Performed: 04/05/22 Height: 5 ft 1 in Weight: 70.76 kg Body Mass Index (BMI): 29.5 Surgical Procedure: Operation Date: 04/05/22 11:10 Proposed Procedure Side Surgeon p Knee Total Arthroplasty Cementless CR Right Jere Zacarias MD Meds Allergies and Home Medications Allergies Allergy/AdvReac Type Severity Reaction Status Date / Time amoxicillin [From Augmentin] AdvReac Intermediate unknown Verified 04/05/22 08:04 clavulanic acid AdvReac Intermediate unknown Verified 04/05/22 08:04 [From Augmentin] Home Medication Medication Instructions Recorded atenolol 25 mg tablet 25 mg PO HS 07/15/21 omeprazole 40 mg capsule,delayed 40 mg PO DAILY 07/21/21 release tramadol 50 mg tablet 50 mg PO Q8H PRN pain #30 tabs 02/18/22 acetaminophen 500 mg tablet 1,000 mg PO TID #90 tabs 04/05/22 aspirin 81 mg tablet,delayed 81 mg PO BID #60 tabs 04/05/22 release celecoxib 200 mg capsule 200 mg PO BID #60 caps 04/05/22 celecoxib 200 mg capsule 200 mg PO BID PRN 04/05/22 gabapentin 300 mg capsule 300 mg PO QHS #14 caps 04/05/22 oxycodone 5 mg tablet 5 mg PO Q4H PRN pain #20 tabs 04/05/22 Current Visit Medications: Current Medications Generic Name Dose Route Start Last Admin Trade Name Freq PRN Reason Stop Dose Admin Acetaminophen 1,000 mg 04/05/22 06:00 Acetaminophen 500 Mg Tab PO PREOP DUSTY Celecoxib 400 mg 04/05/22 06:00 Celecoxib 200 Mg Cap PO PREOP DUSTY Gabapentin 300 mg 04/05/22 06:00 Gabapentin 300 Mg Cap PO PREOP DUSTY Tranexamic Acid 1,000 mg/ 60 mls @ 360 mls/hr 04/05/22 06:00 Sodium Chloride IVPB 04/05/22 23:59 PREOP DUSTY Ringer's Solution 1,000 mls @ 80 mls/hr 04/05/22 06:00 IV 05/01/22 23:59 INFUSION DUSTY Cefazolin Sodium/Dextrose 2 gm in 50 mls @ 100 mls/hr 04/05/22 06:00 Ancef Duplex IVPB 05/01/22 23:59 PREOP DUSTY IV Miscellaneous Supplies 1 each 04/05/22 06:00 Iv Access IV 05/01/22 23:59 DIRECTED DUSTY Sodium Chloride 0 ml 04/05/22 06:00 Normal Saline Flush 10 Ml Syr IV 05/01/22 23:59 PRN PRN Sodium Chloride 0 ml 04/05/22 06:00 Normal Saline 10 Ml Vial IJ 05/01/22 23:59 DIRECTED PRN Sterile Water 0 ml 04/05/22 06:00 Water,Injection,Sterile 10 Ml Vial IJ 05/01/22 23:59 DIRECTED PRN PFSH Active Problems Active Problems: Problem Status Onset Code Tendinitis involving left hip abductors 07/28/17 M76.892 Post-menopausal bleeding 12/26/13 N95.0 Endometrial hyperplasia, complex 01/07/14 N85.01 Adenocarcinoma of endometrium 01/29/14 C54.1 MICHAEL (obstructive sleep apnea) G47.33 Hypertension I10 History of total left knee replacement Z96.652 Osteoarthritis of right knee M17.11 Medical History Medical History History of obstructive sleep apnea pt. uses CPAP Hx of essential hypertension Hx of gastroesophageal reflux (GERD) Surgical History Surgical History (Updated 04/05/22 @ 08:05 by Lenore Ferreira RN) H/O hernia repair History of arthroplasty of left knee Hx of colonoscopy Status post abdominal hysterectomy and salpingo-oophorectomy (~2014) For uterine cancer Status post carpal tunnel release of both wrists Tobacco Smoking/Tobacco Use Status: Never Alcohol Alcohol Intake: current Alcohol intake frequency: holidays/special occasions only Alcohol type: wine Substance Use Substance use: Never Substance use type: does not use Vital Signs and Lab Results Vital Signs Most Recent Vital Signs in EMR: Temp Pulse Resp BP Pulse Ox 36.7 C 66 16 157/68 H 96 04/05/22 08:08 04/05/22 08:08 04/05/22 08:08 04/05/22 08:08 04/05/22 08:08 Lab Results Blood Type / Crossmatch: No Data to Display Complete Blood Count: White Blood Count 5.88 10^3/uL (4.4-10.8) 04/01/22 09:48 Red Blood Count 4.45 10^6/uL (3.93-5.22) 04/01/22 09:48 Hemoglobin 13.9 g/dL (11.2-15.7) 04/01/22 09:48 Hematocrit 41.5 % (36.0-46.0) 04/01/22 09:48 Platelet Count 216 10^3/uL (130-400) 04/01/22 09:48 Complete Metabolic Panel: Sodium Level 142 mmol/L (136-145) 04/01/22 09:48 Potassium Level 4.3 mmol/L (3.5-5.1) 04/01/22 09:48 Chloride Level 107 mmol/L (98-107) 04/01/22 09:48 Carbon Dioxide Level 27.6 mmol/L (21.0-32.0) 04/01/22 09:48 Blood Urea Nitrogen 21 mg/dL (7-18) H 04/01/22 09:48 Creatinine 0.9 mg/dL (0.55-1.02) 04/01/22 09:48 Calcium Level 9.2 mg/dL (8.5-10.1) 04/01/22 09:48 Glucose Level 119 mg/dL (74-106) H 04/01/22 09:48 Liver Function Panel: No Data to Display Coagulation Panel: No Data to Display Cardiac Panel: No Data to Display Arterial Blood Gas: No Data to Display Venous Blood Gas: No Data to Display Pancreas Panel: No Data to Display Thyroid Panel: No Data to Display Infectious Disease: Coronavirus (COVID-19)(PCR) Negative (Negative) 04/01/22 09:58 Coronavirus 2019 Source Nasal/Nares 04/01/22 09:58 Blood Cultures: No Data to Display Toxicology Panel: No Data to Display Anesthesia Assessment and Plan Anesthesia History Personal History: No History of Anesthesia Complications Family History: No Family History of Anesthesia Complications Exercise Tolerance Exercise Tolerance: Metabolic Equivalents>4 Cardiac & Pulmonary Exam Cardiac Exam: Normal S1/S2 Heart Sounds Pulmonary Exam: Clear Bilateral Breath Sounds Implantable Cardiac Device Does patient have a Pacemaker or an ICD?: No Airway Exam Known Difficult Airway: No Mallampati Class: 2 Mouth Opening: Narrow (< 3cm) Thyromental Distance: Less than 3 cm Neck Range of Motion: Full ROM Neck Circumference: Normal Teeth Condition: Normal Dentition ASA Classification ASA Score: ASA 2 Emergency Case?: No NPO Status NPO Status: NPO Clears >2 hours, Solids >8 hours Anesthesia Plan Resuscitation Status: Full Code Anesthesia Technique: Spinal Anesthesia Airway Planned: Natural Airway Pain Management: Surgeon and patient request nerve block Monitors Used: Standard Monitors Preoperative Comments:: 71 yo female for right TKA. Sig PMHx: MICHAEL, GERD (well controlled/omeprazole), HTN (atenolol), never smoker, occ EtOH Previous Anes: - previous TKA chloro spinal with propr/ketamine/phenyl gtt. - mac 3 grade 1, masked with OPA.
[2022-04-05] VITALS (11 sets, daily range): BP systolic 104–162; BP diastolic 43–97; PULSE 57–66; RESP 13–62; TEMP 36.1–36.7; O2SAT 96–100; BMI 29.5
--- NOTE | 2022-04-05 07:28 | PDOC.DSDIS_ITS ---
Discharge Plan Disposition Patient Disposition: HOME Condition: Good Discharge Details Reason For Visit: R TKA Attending Provider: Jere Zacarias Primary Care Provider: Jenifer Graves V Home Meds and New Rx's Prescriptions: New celecoxib 200 mg capsule 200 mg PO BID Qty: 60 0RF aspirin 81 mg tablet,delayed release (DR/EC) 81 mg PO BID Qty: 60 0RF acetaminophen 500 mg tablet 1,000 mg PO TID Qty: 90 3RF gabapentin 300 mg capsule 300 mg PO QHS Qty: 14 0RF oxycodone 5 mg tablet 5 mg PO Q4H MDD 6 tabs PRN (Reason: pain) Qty: 20 0RF Discontinued celecoxib [Celebrex] 200 mg capsule 200 mg PO BID Qty: 60 2RF acetaminophen 500 mg capsule 1,000 mg PO Q8H PRN PRNQty: 90 0RF No Action atenolol 25 mg tablet 25 mg PO HS tramadol 50 mg tablet 50 mg PO Q8H PRN (Reason: pain) Qty: 30 0RF omeprazole 40 mg capsule,delayed release(DR/EC) 40 mg PO DAILY Label Comments: TAKE ONE CAPSULE BY MOUTH EVERY DAY celecoxib 200 mg capsule 200 mg PO BID PRN Discharge Instructions Additional Instructions: Total Knee Discharge Instructions Activity: The most important activity is to walk. You should try to take short walks a few times a day. It is important that when resting you work on keeping the knee straight. Avoid putting a pillow behind the knee as this will encourage flexion. Work on range of motion exercises as provided by Physical Therapy. If you have the [employer] bike coming, this will be your primary tool for exercise after the knee replacement. You should use it and follow the directi ons for the knee. Utilize the other exercises sparingly based on your symptoms. - Start outpatient physical therapy within 2 weeks. - You should wear the MARYBETH hose on both legs for 2 weeks. You may remove these at night. You may also use any compression sock in place of the MARYBETH hose. - Utilize [employer] to review exercises, see videos on exercises and obtain basic information pertaining to your surgery and your recovery. Dressing: Remove the Troy wrap by 2 days after your surgery and put on the MARYBETH stocking given to you from the hospital. Keep the surgical dressing (underneath the TROY wrap) in place for at least one week. After the first week it may be removed and replaced with light gauze and tape or nothing. The wound and dressing may get wet after 3 days but avoid soaking the dressing or otherwise it will need to be changed. Many people prefer covering the dressing with cling wrap (saran wrap) to minimize it from getting soaked. If it gets wet, just pat dry. If it starts to peel off then it will need to be changed. Medications: - You should take Tylenol and anti-inflammatory Celebrex as your primary pain control medications. If the Celebrex is too expensive or not covered, please call the office for another alternative (Advil/Ibuprofen or Naproxen/Aleve) - You have been prescribed a stronger pain medication Oxycodone for breakthrough pain, take as needed as prescribed. - You should continue to take your omeprazole to help reduce stomach acid and reflux. - You have been prescribed Gabapentin to take at night for restlessness and nerve pain. - You will be taking Aspirin 81mg twice a day for DVT prevention unless instructed otherwise. - If you have constipation you should take Colace or Miralax (both [id number]). It takes most people 3-4 days to have a bowel movement. Follow-up: 2 weeks If you have any acute concerns or questions, please do not hesitate to contact the office at [phone]. You may contact Dr. Zacarias with any questions after hours through the hospital at [phone] or on his cell phone at [phone]. Stand Alone Forms: Anesthesia Discharge Inst., Anes.Nerve Block Instructions, Gerald Fuller ([facility]) Referrals: Jere Zacarias MD [ [facility] STAFF PHYSICIAN] - Equipment/Supplies: Walker Activity:: Activity as Tolerated Shower/Bathe:: 72 hours Diet:: As Tolerated Discharge Orders Discharge Orders: Discharge Order (Routine); Ordered 04/05/22 Ordered By: Jere Zacarias
[2022-04-05] MEDS: Gabapentin 300 MG CAP PO (08:36)
[2022-04-05] MEDS: Acetaminophen 500 MG TAB 1000 MG PO (08:36)
[2022-04-05] MEDS: Celecoxib 200 MG CAP 400 MG PO (08:36)
[2022-04-05] MEDS: Lactated Ringers 1,000 ML 80 ML IV (08:48)
--- NOTE | 2022-04-05 09:46 | W.ANESNERVE ---
Nerve Block Single Injection Procedure Date and Time Date Performed: 04/05/22 Procedure Start: 09:32 Location Where Procedure Performed Procedure Location: Day Surgery Unit Reason Performed: Postoperative Analgesia Requesting Provider: Jere Zacarias Timeout Performed Timeout Performed: Yes Monitoring Used ECG and Blood Pressure Sterility Sterility: Hand Hygiene, Surgical Cap, Surgical Mask, Sterile Gloves and Chlorhexidine Sedation Given During Procedure Sedation Given (Indicate Dose Given): No Sedation given Patient Mental Status Patient Mental Status: Awake Nerve Block 1st Nerve Block: Laterality: Right Block Type: Adductor Canal Needle / Catheter Used: 100mm SonoPlex II Local Anesthetic Bolus (Indicate Dose Given): Lidocaine used for local infiltration of skin and Bupivacaine 0.375% Dose:: 10 mL Additives (Indicate Dose Given): None Ultrasound: Sterile probe cover and gel used Ultrasound Image Saved?: Yes Nerve Stimulator: Not Used Paresthesia: None Procedure Tolerated: No Complications Procedure Outcome: Successful Performed By: Irineo Diaz
[2022-04-05] MEDS: ceFAZolin 2 GM/50 ML BAG IVPB (10:13)
--- NOTE | 2022-04-05 12:53 | W.ANESPOSTOP ---
Postoperative Evaluation Date, Time and Location Date Performed: 04/05/22 Time Performed: 12:53 Patient Location: PACU Vital Signs Most Recent Imported Vital Signs: Most Recent Vital Signs Temp Pulse Resp BP Pulse Ox 36.3 C L 62 18 119/97 H 99 04/05/22 12:43 04/05/22 12:43 04/05/22 12:43 04/05/22 12:43 04/05/22 12:43 Pain Score Most Recent Pain Score: Most Recent Pain Score Pain Level 0 04/05/22 12:43 Assessment Mental Status: Awake (Alert & Oriented to Patient Baseline) Airway and Respiratory Function: Patent airway with normal (patient baseline) respiratory exam Cardiovascular Function: Hemodynamically Stable Hydration Status: Adequately Hydrated Nausea & Vomiting: No Nausea or Vomiting Pain: Pain is tolerable per patient Peripheral Nerve Block: Regional nerve block not resolved at time of post operative discharge
[2022-04-05] MEDS: oxyCODONE 5 MG TAB PO (14:35)
--- NOTE | 2022-04-05 14:50 | PT.INIE ---
Date of service: 04/05/22 Time of Service: 14:50 PT Notes Visit Reasons: R TKA Physical Therapy Day Surgery Initial Evaluation Date: 04/05/2022 Referring Doctor: ОЛЬГА Mccurdy PT Orders: PT CONSULT: S/P Ortho surgery Precautions: WBAT on R LE with AD. Patient Profile/Admitting Diagnosis: Brianne is a 71-year-old female with primary unilateral osteoarthritis of the right knee status post total knee arthroplasty day 0. PMHX: Medical History? History of obstructive sleep apnea pt. uses CPAP Hx of essential hypertension Hx of gastroesophageal reflux (GERD) Surgical History? Hx of colonoscopy Status post abdominal hysterectomy and salpingo-oophorectomy (~2014) For uterine cancer Status post carpal tunnel release of both wrists Social History/Home Situation: Lives with in a private home with 2 steps to enter.? 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 She also takes other patients in the community. Daughter Bhumika is a nurse in the OR.? Independent with all aspects of ADLs prior to surgery.? Equipment Owned/DME: FWW Subjective: Reported pain in R knee at 7-8/10 earlier but Nurse Lenore states that patient has been given pain pill to address symptom. Complained of mild lightheadedness that subsided with mobility performance. Denies chest pain and headache. Objective: General Observation: Supine in bed. ? BETTY wraps to R LE.? Cryocuff to R knee.? TEDs to left leg.? Mental Status: Alert and oriented x 4 Pain: 4-5/10 in R knee ROM: Right Lower Extremity: Hip flexion WFL. Hip abduction WFL. Knee flexion about 10 degrees to 110 degrees. Knee extension -10 degrees.? Ankle dorsiflexion WFL. Ankle plantarflexion WFL.Hip flexion WFL. Hip abduction WFL. Knee flexion WFL. Ankle dorsiflexion WFL. Ankle plantarflexion WFL. Left Lower Extremity: Hip flexion WFL. Hip abduction WFL. Knee flexion WFL. Ankle dorsiflexion WFL. Ankle plantarflexion WFL. Strength: Right Lower Extremity: Hip flexors 5/5. Hip abductors 5/5. Knee flexors 5/5. Knee extensors 3-/5.? Knee extension 3-/5.? Ankle dorsiflexors 5/5. Ankle plantarflexors 5/5. Left Lower Extremity: Hip flexors 5/5. Hip abductors 5/5. Knee flexors 5/5. Knee extensors 5/5. Ankle dorsiflexors 5/5. Ankle plantarflexors 5/5. Sensation:? Intact as to pain and light pressure in B LE Bed Mobility/Transfers: Supine to sit standby assist Sit to stand standby assist Stand to sit standby assist Bed to chair standby assist Gait: Instructed patient with level surface ambulation 100 feet using FWW with step-through gait pattern requiring stand by assist and minimal verbal cueing for safety.? Happy that she can bend her right knee without too much pain. No loss of balance. Quad activation good. NO shortness of breath. Stairs: Up and down 6 x 4-inch steps and 4 x 6-inch steps while holding onto B rails for support with step-to gait pattern. Stand by assist only. Balance: Static Sitting: Normal Dynamic Sitting: Normal Static Standing: Fair Dynamic Standing: Fair THERA EX: SLR x 10 LAQ x 10 Ankle DF/PF x 10 Gluteal sets x 10 Quads sets x 10 Special Tests: Mobility Limitations Standardized Measure [facility] 6 clicks Basic Mobility Inpatient Short Form: Raw Score: 24 ? CMS Score: 0% deficit Informed Consent/Education:? Patient instructed in purpose of PT consult.? Education and training on initial set of exercises that can be done at home have been completed with patient. Assessment: Brianne demonstrates the need for FWW for all mobility ADL performance to reduce fall risk and maximize independence at home.?Will have very good support from family at home.? Patient presents with clinical signs and symptoms consistent with current/admitting diagnoses that have resulted to mobility limitations as demonstrated by the following impairment level findings: 1.? Decreased strength to R knee major muscle groups 2.? Impaired standing balance 3.? Limitation of joint range of motion in R knee Impairments are contributing to the following functional limitations: 1.? Inability to safely ambulate without assistive device 2.? Increase completion time for mobility ADL performance 3.? Increased fall risk Patient is assessed as a 61188 moderate complexity based on the following: History: 71-year-old female with impairment level findings, functional limitations, and past medical history as indicated above Examination: Demonstrable impairment in strength, balance, and mobility level with underlying impairments and functional limitations as documented above Presentation: Evolving Decision Makin moderate complexity Goals: N/A.? PT evaluation and 1-2 treatment sessions only for functional mobility training using recommended AD and for HEP instruction. Plan of Care/Treatment Plan: N/A.? PT evaluation and 1-2 treatment session only for functional mobility training using recommended AD and for HEP instruction. DISCHARGE RECOMMENDATIONS: ?? Home with no services [] ? Home with services [specify] [X] ? Home with outpatient PT.? Home when cleared by orthopedic surgeon.? OP PT services to facilitate return to full ADL participation and vocational activities. [] ? SNF for continued rehabilitation [] [] ? Snf Care [] [] ? SNF versus LTC based on ability to participate and progress [] TREATMENT CODE/TIME: 29128 x 22 minutes beginning at 14:50 PM. Thank you for the opportunity to participate in the care of this patient. Teresa Cabrera PT, DPT, CLT [facility] [place], [place]
--- NOTE | 2022-04-05 20:47 | ROE_ITS ---
Date of service: 04/05/22 Time of Service: 11:30 Operative Note Operative Note DATE OF PROCEDURE: 04/05/22 PRE-OP DIAGNOSIS: Right Knee Osteoarthritis POST-OP DIAGNOSIS: same PROCEDURE: Right Total Knee Replacement SURGEON: Jere Zacarias REWORK MACHINE OPERATOR: Laim Bustamante ANESTHESIA TYPE: Spinal Refer to Anesthesia Record ESTIMATED BLOOD LOSS: 100 PATHOLOGY: none sent TOURNIQUET TIME: 0 COMPLICATIONS: None Patient was transported to: PACU Patient's condition: stable Implants: 1. Depuy Attune Cementless Posterior Stabilized Femoral Component, Size 5 Narrow 2. Depuy Attune Cementless Rotating Platform Tibial Component, Size 4 3. Depuy Attune 5x6mm PS/RP Poly 4. Depuy Attune Patellar Component, Size 32 Indications: I have seen Brianne in clinic for symptoms of knee arthritis, confirmed with radiographic findings. She has exhausted nonoperative methods and was having significant limitations in daily function and desired better function and less pain. I discussed the technical details of a knee replacement. I explained the risks of the procedure to include, but not limited to, bleeding, infection, pain, stiffness, fracture, damage to nerves and vessels, damage to muscles and tendons, loosening, need for repeat procedure, blood clot and cardiopulmonary demise. Despite these risks, Brianne elected to proceed. Findings: There was significant signs of arthritis of the patellofemoral joint with notable lateral translation of the patella and dishing of the patella with deformity and thinning. There was a valgus type deformity with focused lateral arthritis. Procedure Description: Brianne was greeted in the preoperative holding area where the correct side was identified and marked. The consent was reviewed with the patient and signed. The history and physical was updated. All questions were answered. Preoperative medications were administered: Acetaminophen 1000mg, Celebrex 400mg, and Gabapentin 300mg. An adductor canal block was then administered by the anesthesia team in the PACU. She was taken back to the operating room. A spinal anesthestic was then administered. The patient was placed into the supine position on the operating room table. A nonsterile tourniquet was placed high onto the leg but only used for cementing. Posts were placed for positioning during the procedure. All bony prominences were well padded. Prophylactic antibiotics in the form of Cefazolin were administered. 1g of Tranxemic Acid was given intravenously within 30 minutes of incision. The left leg was then prepped with Chloraprep and draped in a standard fashion with impervious stockinette. A second prep with Chloraprep was performed prior to application of Iodine impregnated skin protection. A timeout to confirm correct identity, side and site, procedure, allergies, anesthesia, and medical concerns was performed. With the knee in some flexion, a midline incision was made overlying the knee. Full thickness skin flaps were raised once the extensor mechanism was encountered. These were raised medially and laterally. Any bleeding was controlled with electrocautery. Once the extensor mechanism was fully exposed, a medial parapatellar arthrotomy was performed in a flexed position. All bleeding from the arthrotomy and the geniculate arteries was coagulated. A medial subperiosteal peel was performed with electrocautery to the midcoronal plane. The fat pad was removed while keeping the patellar tendon protected. The anterior distal femur synovium was removed for later visualization. The ACL and PCL were resected and the anterior horn of the lateral meniscus was transected. The knee was then flexed with the patella everted. The patella had significant deformity and was articulating lateral to the trochlea over the edge of the lateral femur. The patella also had signficant deformity with a central thinned section measuring only 8mm. Osteophytes from the patella and the lateral tibia and femur were removed. Using a step drill, and based on preoperative templating, the femoral canal was entered. This was done with a step drill without any difficulty. The intramedullary distal femoral cut guide was inserted, set to a 5 degree valgus cut and 8mm cut thickness. The distal femoral cut guide was then held in position and pinned. With the soft tissues protected, the distal cut was performed. This was passed over a few times to ensure a planar cut. I then turned attention to the tibia. The extramedullary guide was placed onto the leg. The distal aspect was slid medial to adjust for position of center of ankle and stay in line with shaft of the tibia. Approximately 3-5 degrees of posterior slope was kept in the proximal cutting guide. The center of the guide was aligned with the PCL. The stylus was used to assess cut thickness. The lateral side, most involved side, was set for a 5mm cut. This was then held in position and pinned into place with 2 additional pins and a cross pin for stability. The medial and lateral collateral ligaments were protected and the cut was performed. With this completed, it was assessed and noted to be of appropriate dimensions. The guide was removed. A spacer block was inserted and the knee was brought into extension. The 7mm spacer block provided full extension, without hyperextension and with stability of both the medial and lateral collateral ligaments was assessed. The pins from the femur and the tibia were then removed. The distal femur was then sized. The anterior stylus was placed onto the lateral ridge of the anterior femur. This indicated a size 5 narrow femur. The external rotation of the guide was adjusted to 0 degrees to match the epicondylar axis, perpendicular to Trinity?s line, and balance the flexion gap. The 4-in-1 cutting guide was the placed. The posterior medial femur cut was evaluated and appeared of good thickness. The spacer block was inserted underneath the cutting guide and stability was confirmed in 90 degrees of flexion. An pb wing was used to confirm appropriate position of the anterior cut to avoid notching. This cutting guide was ensured to be flush on the cut surface and then pinned into place with headed pins. While protecting the soft tissues, quad tendon, and collateral ligaments, the anterior and posterior cuts were performed with a saw. The central two pins were removed and the posterior and anterior chamfers were cut next. The notch-cutting guide was placed. This was pinned to lateralize the femoral component as much as possible while keeping it flush on the cut surface. This was then pinned into position. A reciprocating saw was used to make the notch cut. A rasp smoothed the cut surfaces. The medial and lateral menisci were removed. A trial femoral component was then inserted, impacted down to the cut surfaces, and the lug holes were drilled. A provisional trial tibial component was placed and the knee was brought through range of motion. There was noted to be excellent extension and flexion. There was no significant instability. A size 7mm polyethylene component provided the best range of motion and stability with less than 2mm gapping with medial and lateral stress and full extension without significant hyperextension. The tibial cut surface was fully exposed. The tibia was then sized as a 4. The tibia had been previously marked during trialing to correspond to the center of the tibial component to help with rotation. The trial was aligned to this liam, approximately rotated to the medial 1/3rd of the tibial tubercle. The trial was pinned into place. The tibia was prepared with a reamer and a keel punch and lug holes. The knee was then brought into extension. Using the patellar clamp and cut guide, this was resected to a flat surface with at least 12mm of thickness remaining with a central defect area which was previously measured as 8-9mm. The size 32 patella fit the best. This was oriented and then clamped into position. The lugs were drilled. The trial components were removed. The final components were opened on the back table. The periosteal and capsular tissues, especially posteriorly, around the knee were then systematically injected with a periarticular cocktail consisting of 246mg of Ropivacaine, 0.5mg of Epinephrine, 0.08mg of Clonidine, and 30mg of Ketorolac, diluted to 100cc. On the back table, with the implants opened, the cement was mixed. One batch of high viscosity cement was prepared with vacuum assistance. After the cement was ready a small amount was placed on the cut surface of the patella and the patellar button was clamped into position and held. While the cement was hardening, the cementless knee components were placed. Starting with the tibial component, the tibia was subluxed anteriorly and the lug holes of the component were lined up. The tibia was then impacted with an impactor and mallet until the tibial component was in contact with the tibia. Then, the femoral component was inserted. The lug holes were aligned and the component was impacted into position. The final polyethylene was inserted. The knee was irrigated with Surgiphor Betadine solution. This was allowed to sit in the knee for 3 minutes and then it was irrigated out with saline. After the cement had finally cured, approximately 15min, the clamp was removed from the patella and the knee was taken through range of motion. The patella was tracking with a no-thumbs technique. The capsule was then reapproximated with a No. 1 Vicryl at multiple locations. The capsule was finally closed with a No. 2 Stratafix, barbed suture. The second dosing of 1g TXA was started. Deep tissues were then reapproximated with 0 Vicryl and 2-0 Vicryl. The skin was closed with a running 3-0 Monocryl in a subcuticular fashion. This was reinforced with skin glue. A Mepilex silver dressing was applied along with a njju-st-rkqoa BETTY wrap. A CryoCuff was applied. Alejandra was transferred to the hospital bed without difficulty an suffering no apparent complication. Alejandra has a good prognosis. Physical therapy will start today and without restrictions, weight-bearing as tolerated. Aspirin 81mg BID will be used for DVT prophylaxis.
== END 2022-04-05 15:58 | disposition home or self-care (01) ==
PROVIDERS: PCP Family Medicine; Visit Provider Student in an Organized Health Care Education/Training Program
PROC: (CPT 27447; principal; 2022-04-05 11:00)
DX: M17.11 Unilateral primary osteoarthritis, right knee (principal); G47.33 Obstructive sleep apnea (adult) (pediatric); I10 Essential (primary) hypertension
CPT/HCPCS: 27447; C1776; 76942; 97162; J0690; J1100; J2370; J2405

== ENCOUNTER 2022-04-18 15:38 | Outpatient (CLI) | payer MEDICARE, OTHER, SELFPAY ==
--- NOTE | 2022-04-18 14:45 | DI.RAD_ITS ---
Exam(s) XR KNEE RT 1V XR STANDING ALIGNMENT EXAM: XR STANDING ALIGNMENT CLINICAL HISTORY: right TKA. TECHNIQUE: 2D digital imaging was performed. Standing AP views were performed from the pelvis throu gh the ankles. Single lateral view of the right knee COMPARISON: CR XR STANDING ALIGNMENT from 08/10/2021 CR XR KNEE RT 1V from 04/18/2022 FINDINGS: BONES: No acute fracture is present. No bony destructive lesion is seen. Leg length discrepancy: None JOINTS: Knees: Bilateral total knee prostheses. The right knee prosthesis has been placed since the p rior exam. The ankle joints are unremarkable. The hip joints are unremarkable. SOFT TISSUE: Normal. IMPRESSION: Bilateral total knee prostheses. No significant leg length discrepancy. DATA REPOSITORY: RADIATION DOSE DELIVERED:
== END 2022-04-18 15:39 | disposition home or self-care (01) ==
LOC: DIORS 15:38
PROVIDERS: PCP Family Medicine; Referring Provider Family Medicine; Visit Provider Physician Assistant
DX: Z96.651 Presence of right artificial knee joint (principal); Z47.1 Aftercare following joint replacement surgery
CPT/HCPCS: 73560; 77073

== ENCOUNTER 2022-04-29 13:44 | Outpatient (REF) | payer MEDICARE, SELFPAY ==
[2022-04-29 21:18] LABS: Bacteria Few HPF (Negative); C & S Indicated? C&S Done As Ordered; Casts Negative LPF (Negative); Crystals Negative HPF (Negative); Epithelial Cells Few HPF (Negative); Mucus Negative (Negative); RBC 0-2 HPF (0-2); WBC >50 HPF (0-5)
== END 2022-04-29 13:45 | disposition home or self-care (01) ==
LOC: NCHCN 13:44
PROVIDERS: PCP Family Medicine; Visit Provider Physician Assistant Medical
DX: R35.0 Frequency of micturition (principal)
CPT/HCPCS: 81015; 87086

== ENCOUNTER → 2022-05-02 02:33 | Outpatient (CLI) | payer MEDICARE, OTHER, SELFPAY ==
--- NOTE | 2022-05-02 | DI.US_ITS ---
Exam(s) US CAROTID EXAM: US CAROTID CLINICAL HISTORY: CAROTID BRUIT RT R09.89. TECHNIQUE: Ultrasound carotids performed using grayscale, color-flow, and spectral Doppler imaging. COMPARISON: No exams were available for comparison FINDINGS: RIGHT CAROTID ARTERY: Plaque: Minimal. Velocity elevation: None. LEFT CAROTID ARTERY: Plaque: Minimal. Velocity elevation: None. VERTEBRAL ARTERIES: Antegrade flow. Measurements: R Bulb: 99.7 cm/s PS / 25.9 cm/s ED R CCA: 91 cm/s PS / 23.7 cm/s ED R ECA: 112.4 cm/s PS / 25.8 cm/s ED R ICA Prox: 69.1 cm/s PS / 21.5 cm/s ED R ICA Mid: 77.8 cm/s PS / 25.8 cm/s ED R ICA Distal: 82.2 cm/s PS /23.6 cm/s ED R Vert: 55.9 cm/s PS / 19.2 cm/s ED R SVR: 1 R DVR: 1.05 L Bulb: 80 cm/s PS / 27.2 cm/s ED L CCA: 96.9 cm/s PS / 27.8 cm/s ED L ECA: 109.3 cm/s PS / 22.5 cm/s ED L ICA Prox: 70 cm/s PS / 20.5 cm/s ED L ICA Mid: 100 cm/s PS / 31.1 cm/s ED L ICA Distal: 110.4 cm/s PS / 39.4 cm/s ED L Vert: 87.9 cm/s PS / 20.3 cm/s ED L SVR: 1.1 L DVR: 1.4 IMPRESSION: No evidence for hemodynamically significant carotid stenosis. Criteria for Carotid Stenosis: Normal: ICA PSV <125 cm/s no plaque or intimal thickening is visible. <50% stenosis: ICA PSV <125 cm/s and plaque or intimal thickening is visible. 50-69% stenosis: ICA PSV is 125-250 cm/s and plaque is visible. >70% stenosis to near occlusion: ICA PSV >250 cm/s with visible plaque and luminal narrowing. DATA REPOSITORY:
== END ==
PROVIDERS: PCP Family Medicine; Visit Provider Family Medicine
DX: R09.89 Other specified symptoms and signs involving the circulatory and respiratory systems (principal)
CPT/HCPCS: 93880

== ENCOUNTER → 2022-05-16 14:43 | Outpatient (BNVA) | payer MEDICARE, SELFPAY | PROVIDERS: PCP Family Medicine; Referring Provider Family Medicine; Visit Provider Student in an Organized Health Care Education/Training Program | DX: Z47.1 Aftercare following joint replacement surgery (principal); Z96.651 Presence of right artificial knee joint ==

== ENCOUNTER 2022-06-27 15:01 | Outpatient (CLI) | payer MEDICARE, OTHER, SELFPAY ==
--- NOTE | 2022-06-27 14:45 | DI.RAD_ITS ---
Exam(s) XR KNEE LT 2V AP,LAT EXAM: XR KNEE LT 2V AP,LAT INDICATION: 1 yr s/p left TKA. COMPARISON: CR XR KNEE LT 1V from 08/10/2021 CR XR KNEE RT 3V AP,LAT,VERENICE from 11/12/2021 CR XR KNEE RT 1V from 04/18/2022 CR XR STANDING ALIGNMENT from 04/18/2022 TECHNIQUE: 2D digital imaging was performed. Two views. FINDINGS: There has been no change in the total knee prosthesis. Anterior soft tissue swelling is noted. No a bnormal bony lucencies. DATA REPOSITORY: RADIATION DOSE DELIVERED:
== END 2022-06-27 15:02 | disposition home or self-care (01) ==
LOC: DIORS 15:02
PROVIDERS: PCP Family Medicine; Referring Provider Family Medicine; Visit Provider Physician Assistant
DX: Z96.651 Presence of right artificial knee joint (principal); Z47.1 Aftercare following joint replacement surgery
CPT/HCPCS: 73560

== ENCOUNTER → 2022-07-18 01:44 | Outpatient (CLI) | payer MEDICARE, OTHER, SELFPAY ==
--- NOTE | 2022-07-18 09:22 | DI.MAMMO_ITS ---
Exam(s) MAMMO SCREENING EXAM: MAMMO SCREENING CLINICAL HISTORY: SCREENING FOR BREAST CANCER Z12.31 TECHNIQUE: Mammograms were interpreted according to the usual protocol including computer analysis w [employer] CAD system, tomosynthesis and C-view imaging. COMPARISON: 2012 through 2020 FINDINGS: The breasts are composed of heterogeneously dense fibroglandular densities, Breast Density category C . No suspicious masses or suspicious microcalcifications are seen. Decreased prominence of previously noted nodule in the posterior superior right breast. No skin thickening or abnormal axillary lymph nodes are seen. There has been no significant change from prior exams. IMPRESSION: BI-RADS Category 1, Negative mammogram. Yearly screening mammography is recommended. Breast Density Category C, heterogeneously Dense. The mammogram demonstrates the patient's breast tissue is dense. Dense breast tissue is very common a nd is not abnormal but dense breast tissue can make it harder to find cancer on a mammogram. Also, de nse breast tissue may increase breast cancer risk. This information about the result of the mammogram report was provided to the patient to raise their awareness. Use this report when you speak with the patient about their risks for breast cancer, which includes their family history. At that time, you may recommend additional screening tests (Ultrasound or MRI) as they might be useful based on their r isk. A negative radiographic report should not delay biopsy if a dominant or clinically suspicious mass is present. Up to ten percent of cancers are not identified on mammography. A negative report may reinforce clinical impression. Adenosis and dense breasts may obscure an underlying neoplasm. False positive reports average 6 to 10%.
== END ==
PROVIDERS: PCP Family Medicine; Visit Provider Family Medicine
DX: Z12.31 Encounter for screening mammogram for malignant neoplasm of breast (principal)
CPT/HCPCS: 77063; 77067

== ENCOUNTER 2022-07-19 10:08 | Emergency (ER) | payer MEDICARE, OTHER, SELFPAY ==
[2022-07-19 10:13] VITALS: BP 155/68; PULSE 72; RESP 18; TEMP 36.3; O2SAT 98
[2022-07-19 10:51] VITALS: BP 166/74; PULSE 68; RESP 16; TEMP 36.6; O2SAT 97
[2022-07-19] MEDS: Ondansetron O.D.T. 4 MG TABEF PO (11:12)
--- NOTE | 2022-07-19 11:17 | W.ED.GENAD ---
Discharge Plan Disposition Patient Disposition: Home Condition: Stable Discharge Details Clinical Impression: Esophageal abrasion Primary Care Provider: Jenifer Graves V ED Provider: Tahmina Gallegos Home Meds and New Rx's Prescriptions: New lidocaine HCl [Lidocaine Viscous] 2 % solution 1 applic mucous membrane BID-TID PRNQty: 100 0RF ondansetron 4 mg tablet,disintegrating 4 mg PO DAILY 3 Days Qty: 3 0RF Continued omeprazole 40 mg capsule,delayed release(DR/EC) 40 mg PO DAILY Label Comments: TAKE ONE CAPSULE BY MOUTH EVERY DAY acetaminophen 500 mg tablet 1,000 mg PO TID Qty: 90 3RF Discharge Instructions Additional Instructions: Pepcid which is irwy-glr-iccgali for the next several days Discussed lidocaine as needed for discomfort, do not take more than as prescribed Take Zofran as needed for nausea and vomiting Liquid diet for the next 24 hours followed by soft diet as tolerated, stay away from spicy and salty foods, tomato, and citrus Return earlier should you have new or worsening complaints Referrals: Jenifer Graves MD [Primary Care Provider] - 2 days Discharge Data Discharge Date/Time-TO BE ENTERED AT DEPARTURE: 07/19/22 12:05 Medical Decision Making This 72-year-old female presents with reports of concern for esophageal foreign body After swallowing a zinc pill she felt it became lodged in her esophagus and was having difficulty swallowing states she vomited once and felt like she dislodged the pill Now feels irritation which is radiating up to her mouth Denies chest pain or shortness of breath Is now able to tolerate p.o., challenge tolerated, GI cocktail with symptomatic improvement Return precautions discussed and patient expressed understanding, No hypoxia, vitals otherwise stable Liquid diet for the next day or 2 recommended HPI General Date/Time Provider Initiated Documentation: 07/19/22 10:58. HPI Narrative: 72-year-old female presents after swallowing a zinc pill and feeling it become lodged in her throat. This caused her to vomit and now she has irritation to her upper abdomen and esophagus. Denies any chest pain or shortness of breath. [place] fine prior to swallowing a single pill. Has been able to tolerate p.o. since the event occurred. This occurred just prior to arrival. Related Data Home Medications Medication Instructions Recorded Confirmed omeprazole 40 mg capsule,delayed 40 mg PO DAILY 07/21/21 07/19/22 release acetaminophen 500 mg tablet 1,000 mg PO TID #90 tabs 04/05/22 07/19/22 lidocaine HCl 2 % mucosal solution 1 applic mucous membrane BID-TID 07/19/22 (Lidocaine Viscous) PRN #100 mL ondansetron 4 mg disintegrating 4 mg PO DAILY 3 days #3 tabs 07/19/22 tablet Previous Rx's Medication Instructions Recorded acetaminophen 500 mg tablet 1,000 mg PO TID #90 tabs 04/05/22 lidocaine HCl 2 % mucosal solution 1 applic mucous membrane BID-TID 07/19/22 (Lidocaine Viscous) PRN #100 mL ondansetron 4 mg disintegrating 4 mg PO DAILY 3 days #3 tabs 07/19/22 tablet Allergies Allergy/AdvReac Type Severity Reaction Status Date / Time amoxicillin [From Augmentin] AdvReac Intermediate unknown Verified 07/19/22 10:18 clavulanic acid AdvReac Intermediate unknown Verified 07/19/22 10:18 [From Augmentin] General Stated Complaint: ForeignBody TAYO: 4 Review of Systems All systems reviewed & are unremarkable except as noted in HPI and below PFSH All Active Problems (Updated 04/18/22 @ 14:57 by Danielle Michael) Esophageal abrasion (Acute) Lipoma of right upper extremity (Acute) Dorsum of hand Status post total right knee replacement (Acute) DOS 04/05/22 Tendinitis involving left hip abductors (Acute 07/28/17) Post-menopausal bleeding (Acute 12/26/13) Endometrial hyperplasia, complex (Acute 01/07/14) Adenocarcinoma of endometrium (Acute 01/29/14) MICHAEL (obstructive sleep apnea) (Chronic) CPAP Hypertension (Chronic) History of total left knee replacement (Acute) DOS 07/26/21 Medical History (Updated 07/19/22 @ 11:47 by ОЛЬГА Beltre) History of obstructive sleep apnea pt. uses CPAP Hx of essential hypertension Hx of gastroesophageal reflux (GERD) Surgical History (Updated 04/18/22 @ 14:57 by Danielle Michael) H/O hernia repair History of arthroplasty of left knee Hx of colonoscopy S/P LASIK (laser assisted in situ keratomileusis) of both eyes Status post abdominal hysterectomy and salpingo-oophorectomy (~2014) For uterine cancer Status post carpal tunnel release of both wrists Social History Smoking/Tobacco Use Status: Never Smoking risk assessment performed?: Yes Alcohol Intake: current Alcohol Intake frequency: holidays/special occasions only Alcohol type: wine Drug use: Never Substance use type: does not use Current gender identity: female Do you feel safe at home: Yes Do you feel safe in your relationship?: Yes Exam Const General: cooperative, comfortable and no acute distress HENMT Other: uvula midline no erythema maintaining secretions Neck Other: no stridor Resp Effort & Inspection: normal respiratory effort Auscultation: clear to auscultation bilaterally Cardio Rate: regular rate Rhythm: regular rhythm Skin General skin exam: no rashes or lesions noted Neuro General: patient alert and patient oriented x3 Course Vital Signs Vital signs: Vital Signs Temperature 36.3 C L 07/19/22 10:13 Pulse 72 07/19/22 10:13 Respiratory Rate 18 07/19/22 10:13 Blood Pressure 155/68 H 07/19/22 10:13 Pulse Oximetry 98 07/19/22 10:13 Temperature 36.6 C 07/19/22 10:51 Temperature Source Tympanic 07/19/22 10:51 Pulse 68 07/19/22 10:51 Respiratory Rate 16 07/19/22 10:51 Respiratory Effort 07/19/22 10:20 Respiratory Pattern Normal 07/19/22 10:20 Blood Pressure 166/74 H 07/19/22 10:51 Blood Pressure Position Sitting 07/19/22 10:13 Pulse Oximetry 97 07/19/22 10:51 Oxygen Delivery Method Room Air 07/19/22 10:51 Oxygen Flow Rate 0 07/19/22 10:51
== END 2022-07-19 12:05 | disposition home or self-care (01) ==
PROVIDERS: Emergency Provider Physician Assistant; PCP Family Medicine
DX: S27.818A Other injury of esophagus (thoracic part), initial encounter (principal); X58.XXXA Exposure to other specified factors, initial encounter; R11.2 Nausea with vomiting, unspecified
CPT/HCPCS: 99283

== ENCOUNTER 2022-10-20 13:40 | Outpatient (REF) | payer MEDICARE, OTHER, SELFPAY ==
[2022-10-20 17:37] LABS: Calculated LDL 112 mg/dL (<100); Cholesterol 205 mg/dL (<200); HDL Cholesterol 77 mg/dL (40-60); Triglyceride 82 mg/dL (<150)
[2022-10-20 18:00] LABS: ESR 8 mm/hr (0-30)
[2022-10-21 19:10] LABS: CRP, High Sensitivity 2.04 mg/L (See Note); Rheumatoid Factor 13.2 IU/mL (<12.0)
[2022-10-24 12:44] LABS: Lyme Ab w Rflx to Lyme Confirm Negative (Negative)
[2022-10-24 15:15] LABS: Anaplasma phagocytophilum Negative (Negative); B. miyamotoi PCR Negative (Negative); Babesia divergens/MO-1 Negative (Negative); Babesia duncani Negative (Negative); Babesia microti Negative (Negative); Ehrlichia chaffeensis Negative (Negative); Ehrlichia ewingii/canis Negative (Negative); Ehrlichia muris eauclairensis Negative (Negative)
== END 2022-10-20 13:41 | disposition home or self-care (01) ==
LOC: NCHCN 13:40
PROVIDERS: PCP Family Medicine; Visit Provider Family Medicine
DX: I10 Essential (primary) hypertension (principal)
CPT/HCPCS: 80061; 85652; 86141; 87798; 86431; 86618

== ENCOUNTER 2023-01-23 09:39 | Outpatient (CLI) | payer MEDICARE, OTHER, SELFPAY ==
--- NOTE | 2023-01-23 09:15 | DI.RAD_ITS ---
Exam(s) XR HAND RT COMPLETE EXAM: XR HAND RT COMPLETE CLINICAL HISTORY: right hand pain. TECHNIQUE: 2D digital imaging was performed of the right hand. Three images were obtained. AP, late ral and oblique views were obtained. COMPARISON: No exams were available for comparison FINDINGS: BONES: No acute fracture is present. No bony destructive lesion is seen. JOINTS: No dislocation present. Wlds-mb-etezzgvl degenerative changes are seen in the hand characteri zed by joint space narrowing and osteophytes. SOFT TISSUE: No soft tissue calcifications are seen. IMPRESSION: Osteoarthritis of the hand. DATA REPOSITORY: RADIATION DOSE DELIVERED:
--- NOTE | 2023-01-23 09:15 | DI.RAD_ITS ---
Exam(s) XR HAND LT COMPLETE EXAM: XR HAND LT COMPLETE CLINICAL HISTORY: left hand nodules. TECHNIQUE: 2D digital imaging was performed of the left hand. Three views were obtained. AP, later al and oblique views were obtained. COMPARISON: No exams were available for comparison FINDINGS: BONES: No acute fracture is present. No bony destructive lesion is seen. JOINTS: No dislocation present. There are moderate degenerative changes in the hand particularly at t he 1st CMC joint characterized by joint space narrowing and osteophytes. SOFT TISSUE: No soft tissue calcifications are identified. IMPRESSION: Osteoarthritis of the hand. DATA REPOSITORY: RADIATION DOSE DELIVERED:
== END 2023-01-23 09:40 | disposition home or self-care (01) ==
LOC: DIORS 09:42
PROVIDERS: PCP Family Medicine; Referring Provider Family Medicine; Visit Provider Student in an Organized Health Care Education/Training Program
DX: M18.11 Unilateral primary osteoarthritis of first carpometacarpal joint, right hand; M18.12 Unilateral primary osteoarthritis of first carpometacarpal joint, left hand; M67.431 Ganglion, right wrist
CPT/HCPCS: 99215; 73130

== ENCOUNTER 2023-02-08 01:52 | Outpatient (CLI) | payer MEDICARE, OTHER, SELFPAY ==
--- NOTE | 2023-02-08 07:15 | DI.MRI_ITS ---
Exam(s) MR UPPER JOINT RT WO EXAM: MR UPPER JOINT RT WO CLINICAL HISTORY: PAIN, MASS rt wrist,lipoma upper ext,d17.21,r22.31. TECHNIQUE: Multiplanar multisequence MRI was performed. COMPARISON: None. FINDINGS: BONES/JOINTS: There is no fracture nor bone contusion. No significant ulnar variance. However, ther e is significant dorsal tilting of the lunate bone consistent with DISI (dorsal intercalated segmenta l instability) with destabilization injury of the scapholunate ligament. There is significant osteoarthritic degenerative change in the radiocarpal joint including degenerati ve subarticular cysts in the distal radius, the largest of these measuring 7 x 6 mm. Also multiple s mall intra-articular cysts in other carpal row bones. There are no obvious para-articular ganglion cysts. LIGAMENTS: Scapholunate ligament exhibits abnormal signal consistent with element of tearing. Lunotriquetral ligament: No evidence of tear. TRIANGULAR FIBROCARTILAGE COMPLEX: Some degenerative signal evident. No obvious prominent tear. Mil d fluid in the radial ulnar joint TENDONS: Flexors: Unremarkable. No tears nor tenosynovitis. Extensors: There is significant fluid consistent with tenosynovitis within the extensor pollicis long us, this over a distance of 8 cm, starting 3.5 cm proximal to the radiocarpal joint in the dorsal dis angy forearm and extending to the base of the thumb. There is also prominent tenosynovitis fluid in t he distal tendon sheath of the extensor carpi radialis longus and brevis tendons, not associated wit h tears of these tendons. No muscle tears evident. Carpal tunnel:Unremarkable MEDIAN NERVE: Unremarkable on this noncontrast examination. OTHER: IMPRESSION: 1. Prominent tenosynovitis of the tendon sheath of extensor pollicis longus as well as extensor carpi radialis longus and brevis, not associated with tendon tears. 2. Significant osteoarthritic changes in the radiocarpal joint, including degenerative subarticular c ysts in the distal radius. 3. DISI with the stabilizing injury of scapholunate ligament DATA REPOSITORY:
--- NOTE | 2023-02-08 19:54 | DI.VRAD_ITS ---
PROCEDURE INFORMATION: Exam: MR Right Upper Extremity Joint Without Contrast; Wrist Exam date and time: 02/08/2023 10:15 AM Age: 72 years old Clinical indication: Wrist and other: Pain, mass RT wrist, lipoma upper ext; Right TECHNIQUE: Imaging protocol: Magnetic resonance imaging of the right upper extremity without contrast. Exam focused on the wrist. COMPARISON: CR XR HAND RT COMPLETE 01/23/2023 9:04 AM FINDINGS: Bones/joints: No fracture. There is 30 degrees dorsal tilt of the lunate, consistent with DISI (dorsal intercalated segmental instability). Moderate osteoarthritic changes in the STT joint and mild-moderate osteoarthritic changes in the 1st CMC joint. Scattered articular erosions in the carpal bones and distal radial articular surface with subarticular cyst development, felt to be osteoarthritic in nature with no gross synovitis. Comparison hand radiographs from 01/23/2023 do not demonstrate a typical erosion pattern for rheumatoid arthritis and there is no chondrocalcinosis to suggest CPPD. Small volume simple joint effusion in the radiocarpal joint and midcarpal joint. There is no lipoma or other mass lesion. Scapholunate ligament: The scapholunate ligament membranous portion and volar band demonstrate abnormal signal concerning for destabilizing ligament tear/dissociation. Lunotriquetral ligament: Unremarkable. No tear. Triangular fibrocartilage complex: There is thinning and suspected small degenerative perforation of the lateral aspect of the triangular fibrocartilage near its radial attachment zone. Flexor compartment tendons: Flexor tendons are unremarkable. Extensor compartment tendons: There is fluid distension of the tendon sheath of extensor pollicis longus involving an 8 cm segment beginning about 3.5 cm proximal to the radiocarpal joint in the dorsal distal forearm and extending to the lateral base of the thumb. There is similar fluid distention of the distal tendon sheaths of extensor carpi radialis longus and brevis. There is no surrounding inflammatory stranding or complex fluid content, and the appearance does not specifically favor infectious tenosynovitis. Would favor reactive tenosynovitis from osteoarthritic changes at the wrist. No extensor tendon tears. Soft tissues: Unremarkable. Other findings: The carpal tunnel is unremarkable. IMPRESSION: 1. Fluid distention of the tendon sheath of extensor pollicis longus and to a lesser degree the distal extensor carpi radialis longus and brevis, without gross synovitis or surrounding inflammatory stranding, favor reactive tenosynovial effusions, possibly secondary to the advanced osteoarthritic changes in the wrist, or repetitive stress. No tendon tear. 2. Evidence of DISI and suspected destabilizing injury to the scapholunate ligament membranous portion and volar band. 3. Moderate osteoarthritic changes and small joint effusions. Dictated and Authenticated by: Jose Juan Foster MD. Ordering:P.PROM Rell Oquendo MD
== END 2023-02-08 02:12 ==
LOC: DI 01:54
PROVIDERS: PCP Family Medicine; Visit Provider Student in an Organized Health Care Education/Training Program
DX: M25.531 Pain in right wrist; D17.21 Benign lipomatous neoplasm of skin and subcutaneous tissue of right arm; M65.831 Other synovitis and tenosynovitis, right forearm; M19.031 Primary osteoarthritis, right wrist; R22.31 Localized swelling, mass and lump, right upper limb
CPT/HCPCS: 73221

== ENCOUNTER 2023-03-07 09:55 | Day surgery (SDC) | payer MEDICARE, OTHER, SELFPAY ==
--- NOTE | 2023-03-07 06:34 | W.ANESPRE ---
General Info Date of Service Date Performed: 03/07/23 Height: 5 ft 1 in Weight: 73.482 kg Body Mass Index (BMI): 30.6 Surgical Procedure: Operation Date: 03/07/23 13:25 Proposed Procedure Side Surgeon p Wrist Excision of Mass, Flouro Guided STT Injection Right Jere Zacarias MD Meds Allergies and Home Medications Allergies Allergy/AdvReac Type Severity Reaction Status Date / Time amoxicillin [From Augmentin] AdvReac Intermediate unknown Verified 03/07/23 10:38 clavulanic acid AdvReac Intermediate unknown Verified 03/07/23 10:38 [From Augmentin] Home Medication Medication Instructions Recorded omeprazole 40 mg capsule,delayed 40 mg PO DAILY 07/21/21 release acetaminophen 500 mg tablet 1,000 mg PO TID #90 tabs 04/05/22 lidocaine HCl 2 % mucosal solution 1 applic mucous membrane BID-TID 07/19/22 (Lidocaine Viscous) PRN #100 mL atenolol 25 mg tablet 25 mg PO HS 01/23/23 losartan 25 mg tablet 25 mg PO HS 03/06/23 Current Visit Medications: Current Medications Generic Name Dose Route Start Last Admin Trade Name Freq PRN Reason Stop Dose Admin Ringer's Solution 1,000 mls @ 80 mls/hr 03/07/23 06:00 IV 04/05/23 23:59 INFUSION DUSTY Cefazolin Sodium/Dextrose 2 gm in 50 mls @ 100 mls/hr 03/07/23 06:00 Ancef Duplex IVPB 03/07/23 16:00 PREOP DUSTY IV Miscellaneous Supplies 1 each 03/07/23 06:00 Iv Access IV 04/05/23 23:59 DIRECTED DUSTY Sodium Chloride 0 ml 03/07/23 06:00 Normal Saline Flush 10 Ml Syr IV 04/05/23 23:59 PRN PRN Sodium Chloride 0 ml 03/07/23 06:00 Normal Saline 10 Ml Vial IJ 04/05/23 23:59 DIRECTED PRN Sterile Water 0 ml 03/07/23 06:00 Water,Injection,Sterile 10 Ml Vial IJ 04/05/23 23:59 DIRECTED PRN PFSH Active Problems Active Problems: Problem Status Onset Code Ganglion cyst of dorsum of right wrist M67.431 Arthritis of carpometacarpal (CMC) joint of left thumb M18.12 Arthritis of carpometacarpal (CMC) joint of right thumb M18.11 Arthritis of nwvekc-ytjqqderp-wjrmwdwtp joint M19.039 Lipoma of right upper extremity D17.21 Status post total right knee replacement Z96.651 Tendinitis involving left hip abductors 07/28/17 M76.892 Post-menopausal bleeding 12/26/13 N95.0 Endometrial hyperplasia, complex 01/07/14 N85.01 Adenocarcinoma of endometrium 01/29/14 C54.1 MICHAEL (obstructive sleep apnea) G47.33 Hypertension I10 History of total left knee replacement Z96.652 Medical History Medical History History of obstructive sleep apnea pt. uses CPAP Hx of essential hypertension Hx of gastroesophageal reflux (GERD) Surgical History Surgical History H/O hernia repair History of arthroplasty of left knee Hx of colonoscopy S/P LASIK (laser assisted in situ keratomileusis) of both eyes Status post abdominal hysterectomy and salpingo-oophorectomy (~2014) For uterine cancer Status post carpal tunnel release of both wrists Tobacco Smoking/Tobacco Use Status: Never Alcohol Alcohol Intake: current Alcohol intake frequency: holidays/special occasions only Alcohol type: wine Substance Use Substance use: Never Substance use type: does not use Details: CBD ocassionally for sleep (Snoozeberry) Vital Signs and Lab Results Vital Signs Most Recent Vital Signs in EMR: Temp Pulse Resp BP Pulse Ox 37.1 C 67 16 148/66 H 97 03/07/23 10:10 03/07/23 10:10 03/07/23 10:10 03/07/23 10:10 03/07/23 10:10 Lab Results Blood Type / Crossmatch: No Data to Display Complete Blood Count: No Data to Display Complete Metabolic Panel: No Data to Display Liver Function Panel: No Data to Display Coagulation Panel: No Data to Display Cardiac Panel: No Data to Display Arterial Blood Gas: No Data to Display Venous Blood Gas: No Data to Display Pancreas Panel: No Data to Display Thyroid Panel: No Data to Display Infectious Disease: No Data to Display Blood Cultures: No Data to Display Toxicology Panel: No Data to Display Anesthesia Assessment and Plan Anesthesia History Personal History: No History of Anesthesia Complications Family History: No Family History of Anesthesia Complications Exercise Tolerance Exercise Tolerance: Metabolic Equivalents>4 Cardiac & Pulmonary Exam Cardiac Exam: Normal S1/S2 Heart Sounds Pulmonary Exam: Clear Bilateral Breath Sounds Implantable Cardiac Device Does patient have a Pacemaker or an ICD?: No Airway Exam Known Difficult Airway: No Mallampati Class: 2 Mouth Opening: Narrow (< 3cm) Thyromental Distance: Less than 3 cm Neck Range of Motion: Full ROM Neck Circumference: Normal Teeth Condition: Normal Dentition ASA Classification ASA Score: ASA 2 Emergency Case?: No NPO Status NPO Status: NPO Clears >2 hours, Solids >8 hours Anesthesia Plan Resuscitation Status: Full Code Anesthesia Technique: General Anesthesia Airway Planned: Natural Airway Monitors Used: Standard Monitors Preoperative Comments:: 71 yo female for right TKA. Sig PMHx: MICHAEL, GERD (well controlled/omeprazole - ? r/t previous NSAID use), HTN (losartan/atenolol), never smoker, occ EtOH Previous Anes: - previous TKA chloro spinal with propr/ketamine/phenyl gtt. - mac 3 grade 1, masked with OPA.
[2023-03-07 10:10] VITALS: BP 148/66; PULSE 67; RESP 16; TEMP 37.1; O2SAT 97
[2023-03-07 11:13] VITALS: BMI 30.6
[2023-03-07] MEDS: Lactated Ringers 1,000 ML 80 ML IV (11:15)
--- NOTE | 2023-03-07 11:42 | W.PREOPHP ---
Assessment and Plan Assessment and plan (1) Ganglion cyst of dorsum of right wrist: Status: Acute (2) Arthritis of carpometacarpal (CMC) joint of left thumb: Status: Acute Assessment and plan: Alejandra is a 72-year-old female has ganglion cyst and tenosynovitis about the right dorsum hand. She also has ongoing thumbs osteoarthritis. Please see the previous office note. However, given the review of the MRI which shows extensive tenosynovitis and fluid about the dorsum of the hand I did offer cyst excision with tenosynovectomy. Her left thumb, which is the most problematic, continues to bother her. Therefore, I offered an intra-articular injection of the left thumb CMC joint. I discussed both of these with her. I reviewed the risk to include bleeding, infection, pain, stiffness, recurrence, need for repeat procedures, damage to nerves and vessels. Despite these risk, she elects to proceed. History of Present Illness Narrative: Alejandra is a 72-year-old who has ongoing swelling and pain about the dorsum of the right hand. MRI showed extensive cystic changes around the extensor tendons of the dorsal radial aspect of the right wrist. Given the persistence of this and their size and inconveniencing pain, I offered excision. She is here today for excision of the right dorsal hand mass as well as tenosynovectomy. Additionally, she has ongoing pain about the base of the left thumb and desire to proceed with a left thumb CMC injection. Initially, her right side was bothering most but this is mostly due to the cyst. The thumb on the left side is more problematic. Review of Systems All systems reviewed & are unremarkable except as noted in HPI and below PFSH All Active Problems Ganglion cyst of dorsum of right wrist (Acute) Arthritis of carpometacarpal (CMC) joint of left thumb (Acute) Arthritis of carpometacarpal (CMC) joint of right thumb (Acute) Arthritis of htxthu-prqraahof-rmkcejlxd joint (Acute) Lipoma of right upper extremity (Acute) Dorsum of hand Status post total right knee replacement (Acute) DOS 04/05/22 Tendinitis involving left hip abductors (Acute 07/28/17) Post-menopausal bleeding (Acute 12/26/13) Endometrial hyperplasia, complex (Acute 01/07/14) Adenocarcinoma of endometrium (Acute 01/29/14) MICHAEL (obstructive sleep apnea) (Chronic) CPAP Hypertension (Chronic) History of total left knee replacement (Acute) DOS 07/26/21 Medical History History of obstructive sleep apnea pt. uses CPAP Hx of essential hypertension Hx of gastroesophageal reflux (GERD) Surgical History H/O hernia repair History of arthroplasty of left knee Hx of colonoscopy S/P LASIK (laser assisted in situ keratomileusis) of both eyes Status post abdominal hysterectomy and salpingo-oophorectomy (~2014) For uterine cancer Status post carpal tunnel release of both wrists Social History Smoking/Tobacco Use Status: Never Smoking risk assessment performed?: Yes Alcohol Intake: current Alcohol Intake frequency: holidays/special occasions only Alcohol type: wine Drug use: Never Substance use type: does not use Details: CBD for sleep (Snoozeberry) Current gender identity: female Do you feel safe at home: Yes Do you feel safe in your relationship?: Yes Meds Allergies and Home Medications Allergies Allergy/AdvReac Type Severity Reaction Status Date / Time amoxicillin [From Augmentin] AdvReac Intermediate unknown Verified 03/07/23 10:38 clavulanic acid AdvReac Intermediate unknown Verified 03/07/23 10:38 [From Augmentin] Home Medications Medication Instructions Recorded Confirmed Type omeprazole 40 mg capsule,delayed 40 mg PO DAILY 07/21/21 03/07/23 History release acetaminophen 500 mg tablet 1,000 mg PO TID #90 tabs 04/05/22 03/07/23 Rx lidocaine HCl 2 % mucosal solution 1 applic mucous membrane BID-TID 07/19/22 03/07/23 Rx (Lidocaine Viscous) PRN #100 mL atenolol 25 mg tablet 25 mg PO HS 01/23/23 03/07/23 History losartan 25 mg tablet 25 mg PO HS 03/06/23 03/07/23 History Exam Resp Auscultation: clear to auscultation bilaterally Cardio Rate: regular rate Rhythm: regular rhythm Results Last Vital Signs Temp 37.1 C 03/07/23 10:10 Pulse 67 03/07/23 10:10 Resp 16 03/07/23 10:10 BP 148/66 H 03/07/23 10:10 Pulse Ox 97 03/07/23 10:10
[2023-03-07] MEDS: ceFAZolin 2 GM/50 ML BAG IVPB (11:52)
--- NOTE | 2023-03-07 12:13 | TENDON_PTH ---
PATIENT: Brianne Toro LOC: [facility] U#:[id number] AGE/SX: 72/F ROOM: RE03/07/[address]: Jere Zacarias MD : 1950 BED: DIS: 03/07/2023 SPEC #: [id number] RECD: 03/07/23 13:35 STATUS: BRIDGETT REQ #: [id number] DIANE: 03/07/23 12:[address]: Jere Zacarias DEPT: Surgical Specimen RECD BY: Tahmina Norman ENTERED: 03/07/23 13:36 SP TYPE: TENDON OTHR DR: Jenifer Graves V Tissues: 1 - TENDON SHEATH, NOS Procedures: GROSS AND MICRO LEVEL 3 Comments: [id number]
--- NOTE | 2023-03-07 12:19 | W.PM.DSUDISC ---
Date of service: 03/07/23 Time of Service: 12:21 Discharge Plan Disposition Patient Disposition: Home Condition: Good Discharge Details Reason For Visit: Right wrist mass and CMC arthritis Attending Provider: Jere Zacarias Primary Care Provider: Jenifer Graves V Home Meds and New Rx's Prescriptions: New tramadol 50 mg tablet 50 mg PO Q6H PRN (Reason: severe postoperative pain) Qty: 6 0RF Rx Instructions: Take one tablet up to every 4 hours as needed for severe pain ibuprofen 600 mg tablet 600 mg PO TID PRN (Reason: pain) Qty: 60 0RF Continued atenolol 25 mg tablet 25 mg PO HS lidocaine HCl [Lidocaine Viscous] 2 % solution 1 applic mucous membrane BID-TID PRNQty: 100 0RF Patient Comments: 03/06/23 Reports doesn't use anymore omeprazole 40 mg capsule,delayed release(DR/EC) 40 mg PO DAILY Patient Comments: TAKE ONE CAPSULE BY MOUTH EVERY DAY acetaminophen 500 mg tablet 1,000 mg PO TID Qty: 90 3RF losartan 25 mg Tablet 25 mg PO HS Discharge Instructions Additional Instructions: Thumb CMC and cyst excision Discharge Instructions Activity: You should keep the hand/thumb elevated as much as possible for the first few days. You may use the other fingers as tolerated but avoid trying to do too much too soon. You may perform light activities with the splint in place. Dressing/Cast: Your splint should stay in place at all times. Do NOT get it wet. You may loosen the BETTY wrap if you feel it is too tight and then rewrap more loosely. Medications: - You should take Tylenol and Ibuprofen for baseline pain control. - You have Tramadol for breakthrough pain. - You may apply ice over the thumb. Follow-up: 10-14 days Referrals: Jere Zacarias MD [ [facility] STAFF PHYSICIAN] - Equipment/Supplies: Splint Activity:: Elevate Remove Dressings/Wound Care:: Do Not Remove Shower/Bathe:: Cover Diet:: As Tolerated Discharge Orders Discharge Orders: Discharge Order (Routine); Ordered 03/07/23 Ordered By: Danielle Michael DS: Diagnosis Discharge Diagnosis (1) Ganglion cyst of dorsum of right wrist: Status: Acute (2) Arthritis of carpometacarpal (CMC) joint of left thumb: Status: Acute
[2023-03-07] MEDS: Bupivacaine 0.25% Pres-Free 30 ML VIAL (12:25)
[2023-03-07] MEDS: methylPREDNISolone ACETATE 80 MG/ML VIAL (12:29)
[2023-03-07 12:45] VITALS: BP 150/60; PULSE 56; RESP 16; TEMP 36.2; O2SAT 96
--- NOTE | 2023-03-07 13:12 | W.ANESPOSTOP ---
Postoperative Evaluation Date, Time and Location Date Performed: 03/07/23 Time Performed: 13:12 Patient Location: Day Surgery Unit Vital Signs Most Recent Imported Vital Signs: Most Recent Vital Signs Temp Pulse Resp BP Pulse Ox 36.2 C L 56 L 16 150/60 H 96 03/07/23 12:45 03/07/23 12:45 03/07/23 12:45 03/07/23 12:45 03/07/23 12:45 Pain Score Most Recent Pain Score: Most Recent Pain Score Pain Level 2 03/07/23 12:45 Assessment Mental Status: Awake (Alert & Oriented to Patient Baseline) Airway and Respiratory Function: Patent airway with normal (patient baseline) respiratory exam Cardiovascular Function: Hemodynamically Stable Hydration Status: Adequately Hydrated Nausea & Vomiting: No Nausea or Vomiting Pain: Pain is tolerable per patient Peripheral Nerve Block: Patient did not receive a nerve block
[2023-03-07 13:30] VITALS: BP 169/79; PULSE 49; RESP 16; TEMP 36.5; O2SAT 98
[2023-03-07] MEDS: Acetaminophen 325 MG TAB 650 MG PO (13:39)
--- NOTE | 2023-03-07 20:57 | W.PM.OP ---
Date of service: 03/07/23 Time of Service: 12:45 Operative Note Operative Note DATE OF PROCEDURE: 03/07/23 PRE-OP DIAGNOSIS: Right Wrist Tenosynovitis with Cysts Left Thumb CMC Arthritis POST-OP DIAGNOSIS: same PROCEDURE: Right Dorsal Tenosynovectomy, Cyst Excision Left Thumb CMC Injection SURGEON: Jere Zacarias ANESTHESIA TYPE: General:No Airway Refer to Anesthesia Record ESTIMATED BLOOD LOSS: 0 PATHOLOGY: none sent TOURNIQUET TIME: 10 COMPLICATIONS: None Patient was transported to: same day Patient's condition: stable Indications: Brianne is a 72-year-old active female who has had progressive enlargement of a mass of the dorsum of the right hand. The appearance bother but also cause pain with motions of the hand and with any direct pressure. MRI confirmed significant fluid around the extensor tendons of the dorsal radial hand. She also has multiple areas of arthritis, most bothered by the left thumb CMC joint. Therefore, I offered tenosynovectomy and excision of the cystic structures around her tendons about the right hand as well as a thumb CMC injection. I reviewed the technical details of a first extensor compartment release. I reviewed the risk of the procedure to include bleeding, infection, pain, stiffness, tendon instability, damage to the superficial radial nerve, recurrence, need for repeat procedures. Despite these risks, the patient elected to proceed. Findings: There is abundant fluid seen around the extensor tendons of the second and third compartment. This was worse distal to the compartments and the extensor retinaculum although there was some fluid and synovitis seen proximal. An aggressive synovectomy was performed of the 3 tendons of these 2 compartments, leaving the extensor retinaculum intact. An injection to the left thumb CMC joint was performed without difficulty. Procedure Description: Brianne was greeted in the preoperative holding area. Name and surgical site were confirmed. The history and physical was completed. The consent was reviewed the patient and signed. She was taken back to the operating room. The patient was placed in the supine position and monitored anesthesia care was initiated. The right was then prepped with ChloraPrep and draped in a standard fashion. Prophylactic antibiotics in the form of cefazolin were administered. A timeout was performed for safe surgery. The surgical site was drawn on the skin. The planned surgical field was anesthetized with 0.25% bupivacaine with epinephrine. A longitudinal incision was made overlying the course of the EPL tendon primarily splitting the difference between the EPL and the ECRL and ECRB distally. The skin was incised only. The deep tissue and subcutaneous fat was dissected with a tenotomy scissors trying to protect bridge of the superficial radial nerve. The swelling of the extensor tendons was easy identifiable distal to the extensor retinaculum and there are exit point from the extensor compartments. This appeared to be expanded synovium and was easily punctured releasing significant mount of fluids. The fluid was decompressed for better visualization. The EPL tendon was focused first distally. The synovium around it was thickened and quite enlarged. This was resected and followed all the way up to the base of the thumb. Any excessive synovium was removed in this location. Attention was then turned to the second compartment tendons. Once again, there was abundant synovium and fluid. Both tendons were inspected and synovium was resected sharply. Samples of the synovium from then the wrist were sent off to the lab for pathology evaluation. Once the tendons were free of any excessive synovium or inflammatory tissue or cystic changes from the level of the extensor retinaculum distal attention was turned proximally. I left the second and third compartments intact and focused on evaluating the tendons proximal to their entry into the extensor compartments. The muscle belly from the first extensor compartment was elevated to expose the ECRB and ECRL tendons. Once again, there was notable synovitis seen in this region. There is also some fluid present here to. This was resected sharply. A [place] was run through the second and third compartment to ensure there was no restriction in this area and no significant synovitis. The tendons were also manipulated both proximally and distally to make sure there was no remnant tissue. The proximal aspect of the EPL tendon did not seem to have significant synovitis. This area was then thoroughly irrigated. The deep tissue was closed with a 3-0 Vicryl. The skin was closed with a running subjective 4-0 Monocryl. Skin glue was applied. The wound was dressed with some 4 x 4's and Webril followed by a short arm splint. All counts were correct. Patient was transferred back to same day surgery area in stable condition.
== END 2023-03-07 14:10 | disposition home or self-care (01) ==
PROVIDERS: PCP Family Medicine; Visit Provider Student in an Organized Health Care Education/Training Program
PROC: (CPT 25118; principal; 2023-03-07 13:15)
DX: M18.12 Unilateral primary osteoarthritis of first carpometacarpal joint, left hand (principal); M65.841 Other synovitis and tenosynovitis, right hand
CPT/HCPCS: 25118 ×2; 20605; 88304; J0690; J1040; J1885; J2001; J2704

== ENCOUNTER → 2023-03-17 09:41 | Outpatient (BNVA) | payer MEDICARE, OTHER, SELFPAY | PROVIDERS: PCP Family Medicine; Referring Provider Family Medicine; Visit Provider Student in an Organized Health Care Education/Training Program | DX: Z47.89 Encounter for other orthopedic aftercare (principal); M65.831 Other synovitis and tenosynovitis, right forearm ==

== ENCOUNTER 2023-04-14 14:18 | Outpatient (REF) | payer MEDICARE, OTHER, SELFPAY ==
[2023-04-14 15:27] LABS: HCT 40.8 % (36.0-46.0); HGB 13.8 g/dL (11.2-15.7); MCH 31.3 pg (27.0-33.0); MCHC 33.8 % (32.0-36.0); MCV 93 fL (80-95); MPV 10.4 fL (8.0-11.0); Platelet Count 209 10^3/uL (130-400); RBC 4.41 10^6/uL (3.93-5.22); RDW 12.7 % (11.7-14.6); RDW-SD 43.3 fL; WBC 5.77 10^3/uL (4.4-10.8)
[2023-04-14 15:54] LABS: Anion Gap 7.9 mmol/L (3-11); BUN 19 mg/dL (7-18); CO2 27.1 mmol/L (21.0-32.0); CREATININE 0.9 mg/dL (0.55-1.02); Chloride 106 mmol/L (98-107); Glucose 110 mg/dL (74-106); Magnesium 1.9 mg/dL (1.8-2.4); Sodium 141 mmol/L (136-145)
[2023-04-17 09:21] LABS: Hemoglobin A1C 6.2 % (<5.7)
== END 2023-04-14 14:19 | disposition home or self-care (01) ==
LOC: NCHCN 14:18
PROVIDERS: PCP Family Medicine; Visit Provider Physician Assistant Medical
DX: I10 Essential (primary) hypertension (principal); K62.5 Hemorrhage of anus and rectum; R73.09 Other abnormal glucose
CPT/HCPCS: 80048; 85027; 83036; 83735

== ENCOUNTER 2023-06-20 16:20 | Outpatient (REF) | payer MEDICARE, OTHER, SELFPAY ==
[2023-06-20 16:32] LABS: Vitamin D 25 Total 37.5 ng/mL (30-100)
[2023-06-20 16:46] LABS: TSH 1.48 uIU/mL (0.36-3.74); Vitamin B12 224 pg/mL (193-986)
[2023-06-20 17:03] LABS: FREE T4 0.96 ng/dL (0.76-1.46)
[2023-06-21 18:07] LABS: T3,Free 5.3 pg/mL (2.8-5.3)
== END 2023-06-20 16:21 | disposition home or self-care (01) ==
LOC: NCHCN 16:20
PROVIDERS: PCP Family Medicine; Visit Provider Family Medicine
DX: R63.5 Abnormal weight gain (principal)
CPT/HCPCS: 82306; 82607; 84439; 84443; 84481

== ENCOUNTER 2023-07-17 12:05 | Outpatient (CLI) | payer MEDICARE, OTHER, SELFPAY ==
--- NOTE | 2023-07-17 11:24 | DI.RAD_ITS ---
Exam(s) XR KNEE LT 2V AP,LAT EXAM: XR KNEE LT 2V AP,LAT CLINICAL HISTORY: TKR follow-up. TECHNIQUE: 2D digital imaging was performed. Two images were obtained. AP and lateral views were ob tained. COMPARISON: CR XR KNEE LT 2V AP,LAT from 06/27/2022 FINDINGS: BONES: There are stable post operative changes of a left total knee replacement present. No fracture or dislocation. JOINTS: The orthopedic hardware is in good position. No evidence of hardware loosening. SOFT TISSUE: Normal. IMPRESSION: Stable postoperative changes. DATA REPOSITORY: RADIATION DOSE DELIVERED:
--- NOTE | 2023-07-17 11:24 | DI.RAD_ITS ---
Exam(s) XR KNEE RT 2V AP,LAT EXAM: XR KNEE RT 2V AP,LAT CLINICAL HISTORY: TKR follow up. TECHNIQUE: 2D digital imaging was performed. Two images were obtained. AP and lateral views were ob tained. COMPARISON: CR XR KNEE RT 1V from 04/18/2022 CR XR STANDING ALIGNMENT from 04/18/2022 FINDINGS: BONES: There are stable post operative changes of a right total knee replacement present. No fractur e or dislocation. There is an enthesophyte at the superior patella. JOINTS: The orthopedic hardware is in good position. No evidence of hardware loosening. SOFT TISSUE: Normal. IMPRESSION: Stable postoperative changes. DATA REPOSITORY: RADIATION DOSE DELIVERED:
== END 2023-07-17 12:06 | disposition home or self-care (01) ==
LOC: DIORS 12:05
PROVIDERS: PCP Family Medicine; Visit Provider Student in an Organized Health Care Education/Training Program
DX: Z47.1 Aftercare following joint replacement surgery (principal); Z96.651 Presence of right artificial knee joint; Z96.652 Presence of left artificial knee joint
CPT/HCPCS: 99213; 73560

== ENCOUNTER → 2023-07-19 02:37 | Outpatient (CLI) | payer MEDICARE, OTHER, SELFPAY ==
--- NOTE | 2023-07-19 | DI.MAMMO_ITS ---
Exam(s) MAMMO SCREENING EXAM: MAMMO SCREENING CLINICAL HISTORY: Z12.31 Screening. TECHNIQUE: Bilateral full field digital CC and MLO mammographic images were obtained with 3D tomosyn thesis and utilizing computer aided detection (CAD). COMPARISON: Prior mammograms were reviewed. FINDINGS: There has been no significant change in the appearance and distribution of the fibroglandular tissue. There are no new spiculated masses nor malignant appearing microcalcification groups. There is no significant architectural distortion nor skin thickening-retraction. IMPRESSION: No radiographic evidence of malignancy. BI-RADS Category 1 - Negative Breast Density - Category C - Heterogeneously dense Breast density Category C or D implies that the patient has dense breast tissue. Dense breast tissue can make it harder to find cancer on a mammogram. Dense breast tissue is also associated with an incr eased risk of breast cancer. This information about the result of the mammogram report was provided to the patient to raise their awareness. Use this report when you speak with the patient about their risks for breast cancer, which includes their family history. At that time, you may recommend additional screening tests (Ultrasoun d or MRI) as these tests may add significant information. A negative radiographic report should not delay biopsy if a dominant or clinically suspicious mass is present. Up to ten percent of cancers are not identified on mammography. A negative report may reinforce clinical impression. Adenosis and dense breasts may obscure an underlying neoplasm. False positive reports average 6 to 10%. Patient will receive a letter notifying them of these results.
== END ==
PROVIDERS: PCP Family Medicine; Visit Provider Family Medicine
DX: Z12.31 Encounter for screening mammogram for malignant neoplasm of breast (principal)
CPT/HCPCS: 77063; 77067

== ENCOUNTER → 2023-12-27 13:59 | Outpatient (CLI) | payer MEDICARE, OTHER, SELFPAY ==
--- NOTE | 2023-12-27 08:30 | DI.RAD_ITS ---
Exam(s) XR LUMBAR SPINE COMPLETE EXAM: XR LUMBAR SPINE COMPLETE CLINICAL HISTORY: lower back pain, M54.9. TECHNIQUE: 2D digital imaging was performed. Five views. COMPARISON: CR XR DEXA BONE DENSITY W/WO YOHAN from 07/02/2021 FINDINGS: BONES: No fracture or destructive lesion. Vertebral body heights are maintained. facet hypertrophy identified at noted throughout, greatest at L4-5. DISKS: Moderate to severe narrowing of the L4-5 and L5-S1 disc spaces. The remaining intervertebral disc spaces are maintained. ALIGNMENT: Lumbar spinal alignment is within normal limits. SOFT TISSUE: Normal. IMPRESSION: Degenerative disc changes of and facet degenerative changes greatest at L4-5 and L5-S1. DATA REPOSITORY: RADIATION DOSE DELIVERED:
--- NOTE | 2023-12-27 09:15 | DI.US_ITS ---
Exam(s) US EXTREMITY VENOUS BI EXAM: US EXTREMITY VENOUS BI CLINICAL HISTORY: left calf pain, swelling r/o DVT,M79.604,M79.605 Pain bilat legs, R22.42,. TECHNIQUE: Bilateral lower extremity venous ultrasound performed using grayscale, color-flow, and sp ectral Doppler analysis. COMPARISON: No exams were available for comparison FINDINGS: The bilateral common femoral, femoral and popliteal veins demonstrate normal compressibility, augment ation, and color Doppler. The posterior tibial veins are patent. IMPRESSION: Right: Negative for DVT Left: Negative for DVT DATA REPOSITORY:
== END ==
PROVIDERS: PCP Family Medicine; Visit Provider Nurse Practitioner Family
DX: R22.43 Localized swelling, mass and lump, lower limb, bilateral; M51.37 Other intervertebral disc degeneration, lumbosacral region
CPT/HCPCS: 72110; 93970

== ENCOUNTER 2024-01-19 16:14 | Outpatient (REF) | payer MEDICARE, OTHER, SELFPAY ==
[2024-01-19 14:31] LABS: ESR 9 mm/hr (0-30)
[2024-01-19 14:46] LABS: C-Reactive Protein < 0.50 mg/dL (<or=0.5)
[2024-01-19 22:48] LABS: Rheumatoid Factor 14.7 IU/mL (<12.0)
[2024-01-22 10:42] LABS: Cyclic Citrullinated Peptide <2.5 U/mL (<5.0)
== END 2024-01-19 16:15 | disposition home or self-care (01) ==
LOC: NCHCN 16:14
PROVIDERS: PCP Family Medicine; Visit Provider Family Medicine
DX: M79.605 Pain in left leg (principal); M79.18 Myalgia, other site
CPT/HCPCS: 85652; 86200; 86140; 86431

== ENCOUNTER → 2024-05-28 11:20 | Outpatient (BNVA) | payer MEDICARE, OTHER, SELFPAY | PROVIDERS: PCP Family Medicine; Referring Provider Family Medicine; Visit Provider Surgery | DX: L72.3 Sebaceous cyst (principal) | CPT/HCPCS: 99213 ==

== ENCOUNTER 2024-06-12 06:12 | Day surgery (SDC) | payer MEDICARE, OTHER, SELFPAY ==
--- NOTE | 2024-06-11 17:44 | W.PM.DSUDISC ---
Date of service: 06/12/24 Time of Service: 08:00 Discharge Plan Disposition Patient Disposition: Home Condition: Good Discharge Details Reason For Visit: Excisions and closure of sebaceous cyst on back Attending Provider: Ole Del Rio Primary Care Provider: Jenifer Graves V Home Meds and New Rx's Prescriptions: No Action atenolol 25 mg tablet 25 mg PO HS acetaminophen 500 mg tablet 1,000 mg PO TID Qty: 90 3RF ibuprofen 600 mg tablet 600 mg PO TID PRN (Reason: pain) Qty: 60 0RF losartan 25 mg tablet 50 mg PO HS Patient Comments: pt. states she thinks it is 100 mg now 06/12/24 latanoprost 0.005 % drops Patient Comments: pt. reports she take drops for glaucoma, thinks this is correct Discharge Instructions Instructions: Surgical Wound (DC) Additional Instructions: Brianne, it was great seeing you today, and I hope you are comfortable during the procedure, and that you make a quick recovery. We are able to get out all of that sebaceous cyst, and hopefully this will never bother you again. Your skin is closed up in a few layers on your back, and you do have some stitches on the skin that will need to be removed in the office. You have a Band-Aid on top of that that can stay in place until tomorrow. If the bandage gets saturated between then, please feel free to reach change it for a fresh one. If not, remove the bandage tomorrow, and shower your back off with warm soapy water. If you prefer to keep a Band-Aid on after that to help prevent irritation from your close, please feel free. Alternatively, if the incision site is comfortable, then you do not necessarily need a Band-Aid on top of it. You may have a little bit of bruising in the area which is extremely common and nothing to worry about. I suspect that Tylenol and ibuprofen will be sufficient to help take care of the pain in the coming days, but certainly if you need something a little stronger do not hesitate to ask. Ice packs will also help with discomfort. If you have any questions, or need anything at all, please call us at any point. If not, we look forward to seeing you in the office in about 1 week for suture removal. 1. Resume all of your regular medications. 2. Alternate heating pads and ice packs every 15 minutes as needed for pain releif. 3. Alternate over the counter tylenol and ibuprofen every 6 hours for the first 2 days, then use as needed. 4. Leave bandage in place for 24 hours, then remove. 5. Shower with warm soapy water. Pat dry. Use a bandaid if needed to protect your clothing. 6. No soaking or tub baths until I see you in the office. 7. No heavy lifting until I see you in the office. 8. Call the office (or go directly to the emergency room after hours) if you notice any of the following: Develop chills (warm to touch), or if you have a thermometer and your temperature is above 101 Difficulty breathing or difficultly swallowing Persistent vomiting Any bleeding ? exceeding one tablespoon 9. Call your physician if the site where your intravenous was started becomes red, swollen, painful, and warm to touch. Stand Alone Forms: Anesthesia Discharge Inst., Gerald Fuller ([facility]) Referrals: Ole Del Rio MD [ [facility] STAFF PHYSICIAN] - (7-10 days for suture removal) Activity:: Activity as Tolerated Remove Dressings/Wound Care:: 24 hours Shower/Bathe:: 24 hours Diet:: As Tolerated Discharge Orders Discharge Orders: Discharge Order (Routine); Ordered 06/11/24 Ordered By: Ole Del Rio DS: Diagnosis Discharge Diagnosis (1) Sebaceous cyst: Status: Acute Asessment and Plan: Outpatient follow-up for suture removal
--- NOTE | 2024-06-11 17:47 | ROE_ITS ---
Date of service: 06/12/24 Time of Service: 08:03 Operative Note Operative Note DATE OF PROCEDURE: 06/12/24 PRE-OP DIAGNOSIS: sebaceous cyst PROCEDURE: excision and primary closure of sebaceous cyst from back SURGEON: Ole Del Rio LOCAL TELEPHONE OPERATOR: Chelsea Sinha ANESTHESIA TYPE: Local By Surgeon and General:No Airway Refer to Anesthesia Record ESTIMATED BLOOD LOSS: 5 PATHOLOGY: none sent COMPLICATIONS: None Patient was transported to: same day Patient's condition: stable Indications: Brianne is a 74-year-old woman with a recurrent sebaceous cyst on her back Findings: 1.5 x 2 cm sebaceous cyst Procedure Description: Brianne was brought back to the OR, and assisted onto the operating room table. She was placed in the left lateral decubitus position. Great care was taken to make sure she was padded and supported appropriately. Next, anesthesia was initiated. I then prepped and draped her back in the usual fashion. I established a generous field block using local anesthetic with Exparel. Next, I made a transverse incision over the area of the suspected cyst. I dissected down through the skin using sharp technique. Once I reached the superficial capsule of the sebaceous cyst, I circumferentially dissected away the surrounding soft tissue taking great care to make sure that we excised the entirety of the cyst wall. All features were consistent with a sebaceous cyst. Once the cyst was completely excised, the surgical site was irrigated. It was hemostatic. This was closed in multiple layers with Vicryl stitches deep, and interrupted Prolene sutures at the skin level. Band-Aid was applied and the patient was allowed to awaken from the anesthetic and transferred back to same- day surgery unit. The cyst itself was about 1.5 x 2 cm in its largest dimensions.
--- NOTE | 2024-06-12 06:15 | ANES.PREOP_ITS ---
General Info Date of Service Date Performed: 06/12/24 Height: 5 ft 2 in Weight: 75.296 kg Body Mass Index (BMI): 30.3 Surgical Procedure: Operation Date: 06/12/24 07:40 Proposed Procedure Side Surgeon p Excision, Primary Closure Cyst on Back Ole Del Rio MD Meds Allergies and Home Medications Allergies Allergy/AdvReac Type Severity Reaction Status Date / Time amoxicillin (From Augmentin) AdvReac Intermediate unknown Verified 06/12/24 06:25 clavulanic acid (From AdvReac Intermediate unknown Verified 06/11/24 10:26 Augmentin) Home Medication ?Medication ?Instructions ?Recorded acetaminophen 500 mg tablet 1,000 mg (2 x 500 mg) PO TID #90 04/05/22 tabs atenolol 25 mg tablet 25 mg PO HS 01/23/23 ibuprofen 600 mg tablet 600 mg PO TID PRN pain #60 tabs 03/07/23 losartan 25 mg tablet 50 mg PO HS 07/17/23 latanoprost 0.005 % eye drops drp 06/12/24 Current Visit Medications: Current Medications Generic Name Dose Route Start Last Admin Trade Name Freq PRN Reason Stop Dose Admin Acetaminophen 1,000 mg 06/12/24 06:00 Acetaminophen 500 Mg Tab PO 06/12/24 23:59 PREOP DUSTY Celecoxib 200 mg 06/12/24 06:00 Celecoxib 200 Mg Cap PO 06/12/24 23:59 PREOP DUSTY Gabapentin 300 mg 06/12/24 06:00 Gabapentin 300 Mg Cap PO 06/12/24 23:59 PREOP DUSTY Hydromorphone HCl 0.2 mg 06/11/24 17:48 Hydromorphone 1 Mg/Ml Syr IVP 07/11/24 17:47 Q1H PRN PRN Ringer's Solution 1,000 mls @ 80 mls/hr 06/12/24 06:00 IV 06/12/24 23:59 INFUSION DUSTY Cefazolin Sodium/Dextrose 2 gm in 50 mls @ 100 mls/hr 06/12/24 06:00 Ancef Duplex IVPB 06/12/24 23:59 PREOP DUSTY IV Miscellaneous Supplies 1 each 06/12/24 06:00 Iv Access IV 06/12/24 23:59 DIRECTED DUSTY Sodium Chloride 0 ml 06/12/24 06:00 Normal Saline Flush 10 Ml Syr IV 06/12/24 23:59 PRN PRN Sodium Chloride 0 ml 06/12/24 06:00 Normal Saline 10 Ml Vial IJ 06/12/24 23:59 DIRECTED PRN Sterile Water 0 ml 06/12/24 06:00 Water,Injection,Sterile 10 Ml Vial IJ 06/12/24 23:59 DIRECTED PRN Tramadol HCl 50 mg 06/11/24 17:48 Tramadol 50 Mg Tab PO 07/11/24 17:47 Q6H PRN PRN Pain PFSH Active Problems Active Problems: Problem Status Onset Code Sebaceous cyst Acute L72.3 Arthritis of carpometacarpal (CMC) joint of left thumb Acute M18.12 Arthritis of carpometacarpal (CMC) joint of right thumb Acute M18.11 Arthritis of hlvcqr-slnkwnuaq-mmlaajqme joint Acute M19.039 Lipoma of right upper extremity Acute D17.21 Status post total right knee replacement Acute 04/05/22 Z96.651 History of total left knee replacement Acute 07/26/21 Z96.652 Hypertension Chronic I10 MICHAEL (obstructive sleep apnea) Chronic G47.33 Adenocarcinoma of endometrium Acute 01/29/14 C54.1 Endometrial hyperplasia, complex Acute 01/07/14 N85.01 Post-menopausal bleeding Acute 12/26/13 N95.0 Tendinitis involving left hip abductors Acute 07/28/17 M76.892 Medical History Medical History Hx of gastroesophageal reflux (GERD) History of obstructive sleep apnea pt. uses CPAP Hx of essential hypertension Surgical History Surgical History Extensor tenosynovitis of right wrist S/P tenosynovectomy: 03/07/2023 S/P LASIK (laser assisted in situ keratomileusis) of both eyes H/O hernia repair History of arthroplasty of left knee (B) Hx of colonoscopy Status post carpal tunnel release of both wrists Status post abdominal hysterectomy and salpingo-oophorectomy (~2014) For uterine cancer Tobacco Smoking/Tobacco Use Status: Never Alcohol Alcohol Intake: current Alcohol intake frequency: holidays/special occasions only Alcohol type: wine Substance Use Substance use: Never Substance use type: does not use Details: CBD gummies for sleep. Vital Signs and Lab Results Lab Results Blood Type / Crossmatch: No Data to Display Complete Blood Count: No Data to Display Complete Metabolic Panel: No Data to Display Liver Function Panel: 2 No Data to Display Coagulation Panel: No Data to Display Cardiac Panel: No Data to Display Arterial Blood Gas: No Data to Display Venous Blood Gas: No Data to Display Pancreas Panel: No Data to Display Thyroid Panel: No Data to Display Infectious Disease: No Data to Display Blood Cultures: No Data to Display Toxicology Panel: No Data to Display Anesthesia Assessment and Plan Anesthesia History Personal History: No History of Anesthesia Complications Family History: No Family History of Anesthesia Complications Exercise Tolerance Exercise Tolerance: Metabolic Equivalents>4 Cardiac & Pulmonary Exam Cardiac Exam: Normal S1/S2 Heart Sounds Pulmonary Exam: Clear Bilateral Breath Sounds Implantable Cardiac Device Does patient have a Pacemaker or an ICD?: No Airway Exam Known Difficult Airway: No Mallampati Class: 2 Mouth Opening: Narrow (< 3cm) Thyromental Distance: Less than 3 cm Neck Range of Motion: Full ROM Neck Circumference: Normal Teeth Condition: Normal Dentition ASA Classification ASA Score: ASA 2 Emergency Case?: No NPO Status NPO Status: NPO Clears >2 hours, Solids >8 hours Anesthesia Plan Resuscitation Status: Full Code Anesthesia Technique: General Anesthesia Airway Planned: Natural Airway Monitors Used: Standard Monitors Preoperative Comments:: 71 yo female for cyst removal Sig PMHx: MICHAEL, GERD, HTN (losartan/atenolol), never smoker, occ EtOH Previous Anes: - wrist cyst, ketamine, prop, no issues. - TKA x 2, chloro spinal with prop/ketamine/phenyl gtt. - mac 3 grade 1, masked with OPA.
[2024-06-12 06:34] VITALS: BP 143/66; PULSE 61; RESP 18; TEMP 36.8; O2SAT 97
[2024-06-12] MEDS: Acetaminophen 500 MG TAB 1000 MG PO (07:01)
[2024-06-12] MEDS: Gabapentin 300 MG CAP PO (07:01)
[2024-06-12] MEDS: Celecoxib 200 MG CAP PO (07:01)
[2024-06-12 07:16] VITALS: BMI 30.3
[2024-06-12] MEDS: Lactated Ringers 500 ML 30 ML IV (07:25)
[2024-06-12] MEDS: ceFAZolin 2 GM/50 ML BAG IVPB (07:31)
[2024-06-12] MEDS: Bupivacaine 0.5% Pres-Free W/EPI 30 ML VIAL (07:49)
[2024-06-12] MEDS: Bupivacaine LIPOSOME/PF 133 MG/10 ML VIAL IJ (07:49)
[2024-06-12] MEDS: Normal Saline 20 ML VIAL (07:50)
[2024-06-12 08:12] VITALS: BP 107/52; PULSE 57; RESP 16; TEMP 36.4; O2SAT 95
[2024-06-12 08:40] VITALS: BP 127/64; PULSE 52; RESP 16; TEMP 36.2; O2SAT 95
--- NOTE | 2024-06-12 08:40 | W.ANESPOSTOP ---
Postoperative Evaluation Date, Time and Location Date Performed: 06/12/24 Time Performed: 08:40 Patient Location: Day Surgery Unit Vital Signs Most Recent Imported Vital Signs: Most Recent Vital Signs Temp Pulse Resp BP Pulse Ox 36.4 C L 57 L 16 107/52 L 95 06/12/24 08:12 06/12/24 08:12 06/12/24 08:12 06/12/24 08:12 06/12/24 08:12 Pain Score Most Recent Pain Score: Most Recent Pain Score Pain Level 0 06/12/24 08:12 Assessment Mental Status: Awake (Alert & Oriented to Patient Baseline) Airway and Respiratory Function: Patent airway with normal (patient baseline) respiratory exam Cardiovascular Function: Hemodynamically Stable Hydration Status: Adequately Hydrated Nausea & Vomiting: No Nausea or Vomiting Pain: Pt. Denies Any Pain Peripheral Nerve Block: Patient did not receive a nerve block
[2024-06-12 09:45] VITALS: BP 121/59; PULSE 60; RESP 16; TEMP 36.1; O2SAT 96
== END 2024-06-12 10:15 | disposition home or self-care (01) ==
LOC: SUR 06:12
PROVIDERS: PCP Family Medicine; Visit Provider Surgery
PROC: (CPT 11402; principal; 2024-06-12 07:30)
DX: L72.3 Sebaceous cyst (principal); G47.33 Obstructive sleep apnea (adult) (pediatric); I10 Essential (primary) hypertension; K21.9 Gastro-esophageal reflux disease without esophagitis
CPT/HCPCS: 11402; 12031; C9290; J0690; J1100; J2405; J2704

== ENCOUNTER 2024-12-20 20:27 | Outpatient (REF) | payer MEDICARE, OTHER, SELFPAY ==
[2024-12-20 15:52] LABS: ESR 6 mm/hr (0-30)
[2024-12-20 16:10] LABS: Anion Gap 5.7 mmol/L (3-11); BUN 21 mg/dL (7-18); CO2 28.3 mmol/L (21.0-32.0); CREATININE 0.8 mg/dL (0.55-1.02); Calcium 9.9 mg/dL (8.5-10.1); Calculated LDL 114 mg/dL (<100); Chloride 107 mmol/L (98-107); Cholesterol 212 mg/dL (<200); Estimated GFR 76.79 (mL/min/1.73m2); Glucose 90 mg/dL (74-106); HDL Cholesterol 72 mg/dL (>or=50); Potassium 4.5 mmol/L (3.5-5.1); Sodium 141 mmol/L (136-145); TSH 2.21 uIU/mL (0.36-3.74); Triglyceride 132 mg/dL (<150)
== END 2024-12-20 20:28 | disposition home or self-care (01) ==
LOC: NCHCN 20:27
PROVIDERS: PCP Family Medicine; Visit Provider Family Medicine
DX: Z00.00 Encounter for general adult medical examination without abnormal findings (principal); R73.03 Prediabetes
CPT/HCPCS: 80048; 80061; 85652; 84443

== ENCOUNTER 2025-01-13 00:14 | Outpatient (CLI) | payer MEDICARE, OTHER, SELFPAY ==
--- NOTE | 2025-01-13 11:30 | DI.US_ITS ---
Exam(s) US CAROTID EXAM: US CAROTID CLINICAL HISTORY: Carotid Bruit R09.89 symptoms/signs involving circulatory/respitory. TECHNIQUE: Ultrasound carotids performed using grayscale, color-flow, and spectral Doppler imaging. COMPARISON: US US CAROTID from 05/02/2022 FINDINGS: RIGHT CAROTID ARTERY: Plaque: No significant calcific plaque is seen. Velocity elevation: None. LEFT CAROTID ARTERY: Plaque: Mild calcific plaque is seen in the carotid bulb and proximal ICA. Velocity elevation: None. VERTEBRAL ARTERIES: Antegrade flow. Measurements: R Bulb: 59.4cm/s PS / 16.7cm/s ED R CCA: 95.7cm/s PS / 23.2cm/s ED R ECA: 80.5cm/s PS / 12.7cm/s ED R ICA Prox: 59.3cm/s PS / 16.3cm/s ED R ICA Mid: 85.9cm/s PS / 26.4cm/s ED R ICA Distal: 68.2cm/s PS /26.4cm/s ED R Vert: 54.3cm/s PS / 13.8cm/s ED R SVR: 0.9 R DVR: 1.1 L Bulb: 69.4cm/s PS / 20.1cm/s ED L CCA: 65.6cm/s PS / 18.8cm/s ED L ECA: 67.8cm/s PS / 8.5cm/s ED L ICA Prox: 48.9cm/s PS / 14.6cm/s ED L ICA Mid: 70.2cm/s PS / 21.7cm/s ED L ICA Distal: 82.3cm/s PS / 25.3cm/s ED L Vert: 69cm/s PS / 16.8cm/s ED L SVR: 1.3 L DVR: 1.3 IMPRESSION: No evidence for hemodynamically significant carotid stenosis. Criteria for Carotid Stenosis: Normal: ICA PSV <125 cm/s no plaque or intimal thickening is visible. <50% stenosis: ICA PSV <125 cm/s and plaque or intimal thickening is visible. 50-69% stenosis: ICA PSV is 125-250 cm/s and plaque is visible. >70% stenosis to near occlusion: ICA PSV >250 cm/s with visible plaque and luminal narrowing. DATA REPOSITORY:
== END 2025-01-13 00:34 ==
LOC: DI 00:14
PROVIDERS: PCP Family Medicine; Visit Provider Family Medicine
DX: R09.89 Other specified symptoms and signs involving the circulatory and respiratory systems (principal)
CPT/HCPCS: 93880

== ENCOUNTER 2025-01-22 00:08 | Outpatient (CLI) | payer MEDICARE, OTHER, SELFPAY ==
--- NOTE | 2025-01-22 | DI.MAMMO_ITS ---
Exam(s) MAMMO SCREENING EXAM: MAMMO SCREENING CLINICAL HISTORY: SCREENING, Z12.31 TECHNIQUE: Mammograms were interpreted according to the usual protocol including computer analysis with CAD system, tomosynthesis and C-view imaging. COMPARISON: 2016 through 2022 FINDINGS: The breasts are composed of heterogeneously dense fibroglandular densities, Breast Density category C. No suspicious masses or suspicious microcalcifications are seen. No skin thickening or abnormal axillary lymph nodes are seen. There has been no significant change from prior exams. IMPRESSION: BI-RADS Category 1, Negative mammogram. Yearly screening mammography is recommended. Breast Density: Category C - The breasts are heterogeneously dense, which may obscure small masses. Breast density Category C or D implies that the patient has dense breast tissue. Dense breast tissue can make it harder to find cancer on a mammogram. Dense breast tissue is also associated with an increased risk of breast cancer. This information about the result of the mammogram report was provided to the patient to raise their awareness. Use this report when you speak with the patient about their risks for breast cancer, which includes their family history. At that time, you may recommend additional screening tests (Ultrasound or MRI) as these tests may add significant information. A negative radiographic report should not delay biopsy if a dominant or clinically suspicious mass is present. Up to ten percent of cancers are not identified on mammography. A negative report may reinforce clinical impression. Adenosis and dense breasts may obscure an underlying neoplasm. False positive reports average 6 to 10%.
== END 2025-01-22 00:28 ==
LOC: DI 00:09
PROVIDERS: PCP Family Medicine; Visit Provider Family Medicine
DX: Z12.31 Encounter for screening mammogram for malignant neoplasm of breast (principal); R92.333 Mammographic heterogeneous density, bilateral breasts
CPT/HCPCS: 77063; 77067

== ENCOUNTER 2025-03-27 18:20 | Outpatient (REF) | payer MEDICARE, OTHER, SELFPAY ==
[2025-03-27 15:56] LABS: HCT 41.7 % (36.0-46.0); HGB 13.9 g/dL (11.2-15.7); MCH 31.2 pg (27.0-33.0); MCHC 33.3 % (32.0-36.0); MCV 94 fL (80-95); MPV 10.1 fL (8.0-11.0); Platelet Count 195 10^3/uL (130-400); RBC 4.45 10^6/uL (3.93-5.22); RDW 12.5 % (11.7-14.6); RDW-SD 43.2 fL; WBC 6.01 10^3/uL (4.4-10.8)
[2025-03-27 16:08] LABS: ESR 7 mm/hr (0-30)
[2025-03-27 16:13] LABS: Hemoglobin A1C 6.0 % (<5.7)
[2025-03-27 16:26] LABS: ALT 25 U/L (14-59); AST 18 U/L (15-37); Albumin 4.1 g/dL (3.4-5.0); Alkaline Phosphatase 69 U/L (46-116); Anion Gap 7.4 mmol/L (3-11); BUN 16 mg/dL (7-18); Bilirubin, Total 0.5 mg/dL (0.2-1.0); C-Reactive Protein < 0.50 mg/dL (<or=0.5); CO2 27.6 mmol/L (21.0-32.0); Calcium 10.1 mg/dL (8.5-10.1); Chloride 106 mmol/L (98-107); Creatine Kinase 41 U/L (26-192); Estimated GFR 76.79 (mL/min/1.73m2); Glucose 107 mg/dL (74-106); Potassium 4.4 mmol/L (3.5-5.1); Sodium 141 mmol/L (136-145); Total Protein 6.8 g/dL (6.4-8.2)
== END 2025-03-27 18:21 | disposition home or self-care (01) ==
LOC: NCHCN 18:20
PROVIDERS: PCP Family Medicine; Visit Provider Family Medicine
DX: M19.90 Unspecified osteoarthritis, unspecified site (principal); R53.83 Other fatigue; I10 Essential (primary) hypertension; R73.03 Prediabetes
CPT/HCPCS: 80053; 82550; 85027; 85652; 83036; 86140

== ENCOUNTER 2025-05-28 10:25 | Outpatient (REF) | payer MEDICARE, OTHER, SELFPAY ==
[2025-05-28 16:33] LABS: Glucose Negative (Negative)
[2025-05-28 16:48] LABS: C & S Indicated? Yes; RBC 20-50 HPF (0-2); WBC >50 HPF (0-5)
== END 2025-05-28 10:26 | disposition home or self-care (01) ==
LOC: NCHCN 10:25
PROVIDERS: PCP Family Medicine; Visit Provider Nurse Practitioner Family
DX: R39.9 Unspecified symptoms and signs involving the genitourinary system (principal)
CPT/HCPCS: 87077; 81003; 81015; 87086; 87186

== ENCOUNTER → 2025-06-06 12:55 | Outpatient (BNVA) | payer MEDICARE, OTHER, SELFPAY | PROVIDERS: PCP Family Medicine; Referring Provider Family Medicine; Visit Provider Physical Therapy Assistant | DX: M79.5 Residual foreign body in soft tissue (principal) | CPT/HCPCS: 10120 ==

== ENCOUNTER 2025-07-17 12:29 | Outpatient (REF) | payer MEDICARE, OTHER, SELFPAY ==
[2025-07-17 16:50] LABS: ESR 3 mm/hr (0-30)
[2025-07-17 17:48] LABS: Cholesterol 221 mg/dL (<200); HDL Cholesterol 70 mg/dL (>or=50)
[2025-07-17 18:00] LABS: Hemoglobin A1C 5.9 % (<5.7)
== END 2025-07-17 12:30 | disposition home or self-care (01) ==
LOC: NCHCN 12:29
PROVIDERS: PCP Family Medicine; Visit Provider Family Medicine
DX: M79.10 Myalgia, unspecified site (principal); R73.03 Prediabetes; E78.49 Other hyperlipidemia
CPT/HCPCS: 80061; 85652; 83036